=== PATIENT | male | born 1960 | race Caucasian/White ===

== ENCOUNTER 2017-01-30 04:10 | Emergency (ER) | payer MEDICAID ==
--- NOTE | 2017-01-30 06:19 | EDM.PDOC ---
ED HPI GENERAL MEDICAL PROBLEM - General Chief Complaint: Chest Pain Stated Complaint: [facility] Time Seen by Provider: 01/30/17 04:53 Source of Information: Reports: Patient History Limitations: Reports: No Limitations - History of Present Illness INITIAL COMMENTS - FREE TEXT/NARRATIVE: This patient complains of vague pain in the middle of his chest. He's been having it off and on for about a week. The pain again this rapidly and lasts only a split second. It is like a jolt. He describes it " like a pain" not pressure not sharp. He said the pains keep repeating and there repeating more today. He was concerned just because they were repeating more Has a history of coronary artery disease had a CABG in 2013. Patient is a dialysis patient and he goes to dialysis later today. 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 Pain Score (Numeric/FACES): 0 - Related Data Allergies Allergy/AdvReac Type Severity Reaction Status Date / Time Phenothiazines AdvReac Bradycardia Verified 01/30/17 04:24 Home Meds: Home Meds *Renal Caps 1 each PO QPM 03/07/14 [History] Acetaminophen [Tylenol] 650 mg PO ASDIRECTED PRN 03/07/14 [History] Aspirin [Adult Low Dose Aspirin EC] 81 mg PO DAILY 03/07/14 [History] ClonazePAM [KlonoPIN] 0.25 mg PO BID 03/07/14 [History] Clopidogrel [Plavix] 75 mg PO QPM 03/07/14 [History] Insulin Aspart [Novolog Flexpen] 15 units SUBCUT BID 03/07/14 [History] Nitroglycerin [Nitrostat] 0.4 mg SL ASDIRECTED 03/07/14 [History] Omeprazole 20 mg PO BID 03/07/14 [History] Rosuvastatin Calcium [Crestor] 40 mg PO BEDTIME 03/07/14 [History] Sertraline HCl 150 mg PO DAILY 03/07/14 [History] amLODIPine [Norvasc] 2.5 mg PO ACBREAKFASTANDBED 03/14/14 [History] Gabapentin [Gabapentin] 100 mg PO BID 02/09/15 [History] QUEtiapine Fumarate [Seroquel Xr] 200 mg PO BEDTIME 02/09/15 [History] Insulin Degludec [Tresiba Flextouch U-200] 72 units SQ BEDTIME 02/22/16 [History ] Past Medical History HEENT History: Reports: Impaired Vision Cardiovascular History: Reports: Afib, CAD, High Cholesterol, [place], SOB on Exertion, Other (See Below) Other Cardiovascular History: pulmonary edema Respiratory History: Reports: Bronchitis, Recurrent, Pneumonia, Recurrent, Sleep Apnea, SOB, Other (See Below) Other Respiratory History: pulmonary edema Genitourinary History: Reports: Chronic Renal Insuffiency, Dialysis Musculoskeletal History: Reports: Gout Neurological History: Reports: Migraines, Neuropathy, Peripheral Psychiatric History: Reports: Anxiety, Bipolar, Depression, Mood Swings, OCD, Panic Attack Endocrine/Metabolic History: Reports: Diabetes, Type II, IDDM, Other (See Below) Other Endocrine/Metabolic History: thyroid disease Hematologic History: Reports: Anemia, Blood Transfusion(s) Immunologic History: Reports: Immunosuppression Oncologic (Cancer) History: Reports: None Dermatologic History: Reports: Cellulitis - Infectious Disease History Infectious Disease History: Reports: Chicken Pox, Shingles Other Infectious Disease History: unknown - Past Surgical History HEENT Surgical History: Reports: None Cardiovascular Surgical History: Reports: Coronary Artery Stent, Percutaneous Transluminal Angioplasty Respiratory Surgical History: Reports: None GI Surgical History: Reports: Colonoscopy Male Surgical History: Reports: Lithotripsy (ESWL) Musculoskeletal Surgical History: Reports: None Oncologic Surgical History: Reports: None Social & Family History - Tobacco Use Smoking Status *Q: Never Smoker Second Hand Smoke Exposure: No - Caffeine Use Caffeine Use: Reports: Coffee, Soda - Alcohol Use Days Per Week of Alcohol Use: 0 - Recreational Drug Use Recreational Drug Use: No Drug Use in Last 12 Months: No Recreational Drug Type: Reports: Marijuana/Hashish Recreational Drug Use Frequency: Not Used In Over 1 Year ED ROS GENERAL - Review of Systems Review Of Systems: See Below Constitutional: Reports: No Symptoms HEENT: Reports: No Symptoms Respiratory: Reports: No Symptoms Cardiovascular: Reports: Chest Pain Endocrine: Reports: No Symptoms GI/Abdominal: Reports: No Symptoms : Reports: No Symptoms Musculoskeletal: Reports: No Symptoms Skin: Reports: No Symptoms Neurological: Reports: No Symptoms ED EXAM, GENERAL - Physical Exam Exam: See Below Exam Limited By: No Limitations General Appearance: Alert, No Apparent Distress, Obese Eye Exam: Bilateral Eye: Normal Inspection Throat/Mouth: Normal Inspection Neck: Normal Inspection Respiratory/Chest: Lungs Clear, Normal Breath Sounds Cardiovascular: Normal Peripheral Pulses, Regular Rate, Rhythm, No Murmur GI/Abdominal: Soft, Non-Tender Back Exam: Normal Inspection Extremities: Normal Inspection, No Pedal Edema Neurological: Alert, Oriented, CN II-XII Intact, No Motor/Sensory Deficits Psychiatric: Normal Affect Skin Exam: Warm, Dry Course - Vital Signs Last Recorded V/S: Last Vital Signs Temp 36.5 C 01/30/17 04:25 Pulse 89 01/30/17 06:14 Resp 12 01/30/17 06:14 BP 195/109 H 01/30/17 06:14 Pulse Ox 95 01/30/17 06:14 - Orders/Labs/Meds Orders: Active Orders 24 hr Category Date Time Status EKG Documentation Completion [RC] ASDIRECTED Care 01/30/17 04:55 Active Chest 1V Frontal [CR] Urgent Exams 01/30/17 04:54 Taken TROPONIN I [CHEM] Urgent Lab 01/30/17 07:00 Ordered EKG 12 Lead [EK] Urgent Ther 01/30/17 04:54 Ordered Labs: Laboratory Tests 01/30/17 01/30/17 01/30/17 Range/Units 04:54 04:54 06:15 WBC 6.8 (4.5-11.0) K/uL RBC 3.85 L (4.30-5.90) M/uL Hgb 11.7 L (12.0-15.0) g/dL Hct 33.9 L (40.0-54.0) % MCV 88 (80-98) fL MCH 30 (27-31) pg MCHC 35 (32-36) % Plt Count 189 (150-400) K/uL Neut % (Auto) 61 (36-66) % Lymph % (Auto) 26 (24-44) % [place] % (Auto) 7 H (2-6) % Eos % (Auto) 4 (2-4) % Baso % (Auto) 1 (0-1) % Sodium 136 L (140-148) mmol/L Potassium 4.4 (3.6-5.2) mmol/L Chloride 95 L (100-108) mmol/L Carbon Dioxide 28 (21-32) mmol/L Anion Gap 17.4 H (5.0-14.0) mmol/L BUN 63 H (7-18) mg/dL Creatinine 9.5 H* (0.8-1.3) mg/dL Est Cr Clr Drug Dosing 7.74 mL/min Estimated GFR (MDRD) 6 L (>60) Glucose 242 H (74-106) mg/dL Calcium 9.0 (8.5-10.1) mg/dL Total Bilirubin 0.3 (0.2-1.0) mg/dL AST 17 (15-37) U/L ALT 23 (12-78) U/L Alkaline Phosphatase 93 (46-116) U/L Troponin I 0.067 H* 0.068 H* (0.000-0.056) ng/mL Total Protein 7.4 (6.4-8.2) g/dL Albumin 3.7 (3.4-5.0) g/dL Globulin 3.7 H (2.3-3.5) g/dL Albumin/Globulin Ratio 1.0 L (1.2-2.2) - Radiology Interpretation Free Text/Narrative:: Slight blunting of the left costophrenic angle. Mild cardiomegaly. Abnormal left heart border probably post surgical seen previously area sternotomy wires. Overall no acute findings - Re-Assessments/Exams Free Text/Narrative Re-Assessment/Exam: 01/30/17 06:23 EKG shows sinus rhythm at 67 bpm there is some inverted T waves laterally that' s been seen for present persistent Q-wave in the lead 3 seen before 01/30/17 06:27 Creatinine is grossly elevated but note patient has dialysis later today. Troponin is mildly elevated and this is most likely due to the elevated creatinine. Repeat troponin at 0700 Free Text/Narrative Re-Assessment/Exam: 01/30/17 06:47 2 hour troponin is unchanged. Patient will be discharged. Pain is noncardiac Departure - Departure Time of Disposition: 06:47 Disposition: Home, Self-Care 01 Condition: Fair Clinical Impression: Non-cardiac chest pain Forms: ED Department Discharge Additional Instructions: Continue all your usual medications. Be sure you go to dialysis today - My Orders Last 24 Hours: My Active Orders 01/30/17 04:54 Chest 1V Frontal [CR] Urgent EKG 12 Lead [EK] Urgent 01/30/17 04:55 EKG Documentation Completion [RC] ASDIRECTED 01/30/17 07:00 TROPONIN I [CHEM] Urgent - Assessment/Plan Last 24 Hours: My Active Orders 01/30/17 04:54 Chest 1V Frontal [CR] Urgent EKG 12 Lead [EK] Urgent 01/30/17 04:55 EKG Documentation Completion [RC] ASDIRECTED 01/30/17 07:00 TROPONIN I [CHEM] Urgent
[2017-01-30 06:26] VITALS: BP 195/109
--- NOTE | 2017-01-30 09:21 | CR ---
Chest 1V Frontal HISTORY: pain COMPARISON: 03/01/2016 FINDINGS: Portable chest, 0509 hours. There is been interval median sternotomy. Heart size is within normal limits for the AP technique. P ulmonary vasculature is not engorged. A small amount of right pleural fluid is present. This tracks into the major fissure. No acute infiltrate is identified. Bony structures are stable. IMPRESSION: Interval median sternotomy. Small right pleural effusion. No other acute chest abnormali ty is identified.
== END 2017-01-30 07:30 | disposition home or self-care (01) ==
LOC: JP.ED 04:10
DX: R07.89 Other chest pain (principal); I25.2 Old myocardial infarction; I48.91 Unspecified atrial fibrillation; I25.10 Atherosclerotic heart disease of native coronary artery without angina pectoris; E78.00 Pure hypercholesterolemia, unspecified; E11.22 Type 2 diabetes mellitus with diabetic chronic kidney disease; N18.9 Chronic kidney disease, unspecified; F31.9 Bipolar disorder, unspecified; Z95.1 Presence of aortocoronary bypass graft; Z95.5 Presence of coronary angioplasty implant and graft; Z98.890 Other specified postprocedural states; Z79.82 Long term (current) use of aspirin; Z79.4 Long term (current) use of insulin; Z79.899 Other long term (current) drug therapy; Z88.8 Allergy status to other drugs, medicaments and biological substances
CPT/HCPCS: 36415; 71010; 71010-26; 80053; 84484; 85025; 93005; 93010; 99284; 99285-25

== ENCOUNTER 2017-04-20 10:52 | Emergency (ER) | payer MEDICAID ==
[2017-04-20] MEDS ORDERED: Acetaminophen 500 MG Tab PO ONE (11:10)
--- NOTE | 2017-04-20 11:12 | EDM.PDOC ---
ED HPI GENERAL MEDICAL PROBLEM - General Chief Complaint: Fever Stated Complaint: FROM [facility] Time Seen by Provider: 04/20/17 11:00 Source of Information: Reports: Patient, EMS History Limitations: Reports: No Limitations - History of Present Illness INITIAL COMMENTS - FREE TEXT/NARRATIVE: 56-year-old male who felt somewhat unwell last night with a mild headache and generalized malaise was feeling better this morning, went to his dialysis and was 3 hours into his run when he developed shaking chills. He then became diaphoretic and had an emesis so they sent him over to the emergency room by EMS. On arrival he was still having shaking chills, his temperature was 99.9. He had no further emesis. Other than a slight headache he had no cold symptoms, sore throat, cough, shortness of breath, diarrhea, abdominal pain, rashes or erythema of the skin. He has a history of UTIs. He has no new urinary symptoms. Severity: Moderate Associated Symptoms: Reports: Fever/Chills, Headaches, Malaise, Nausea/ Vomiting. 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 below) Other Treatments WEAVER TIRE CORD: At dialysis Back Pain Score (Numeric/FACES): 4 - Related Data Allergies Allergy/AdvReac Type Severity Reaction Status Date / Time Phenothiazines AdvReac Bradycardia Verified 01/30/17 04:24 Home Meds: Home Meds Acetaminophen [Tylenol] 650 mg PO ASDIRECTED PRN 03/07/14 [History] Aspirin [Adult Low Dose Aspirin EC] 81 mg PO DAILY 03/07/14 [History] ClonazePAM [KlonoPIN] 0.5 mg PO BID 03/07/14 [History] Clopidogrel [Plavix] 75 mg PO QPM 03/07/14 [History] Insulin Aspart [Novolog Flexpen] 25 units SUBCUT ACBREAKFAST 03/07/14 [History] Nitroglycerin [Nitrostat] 0.4 mg SL ASDIRECTED 03/07/14 [History] Rosuvastatin Calcium [Crestor] 40 mg PO BEDTIME 03/07/14 [History] Sertraline HCl 150 mg PO DAILY 03/07/14 [History] amLODIPine [Norvasc] 2.5 mg PO ACBREAKFASTANDBED 03/14/14 [History] Gabapentin [Gabapentin] 100 mg PO BID 02/09/15 [History] QUEtiapine Fumarate [Seroquel Xr] 200 mg PO BEDTIME 02/09/15 [History] Calcium Acetate [PhosLo] 2 tab PO DAILY 04/20/17 [History] Insulin Glarg,Human.Rec.Analog [Lantus Solostar] 80 units SUBCUT BEDTIME [History] Nefazodone [Serzone] 150 tab PO DAILY 04/20/17 [History] Pantoprazole Sodium [Pantoprazole Sodium] 40 mg PO DAILY 04/20/17 [History] Past Medical History HEENT History: Reports: Impaired Vision Cardiovascular History: Reports: Afib, CAD, High Cholesterol, [place], SOB on Exertion, Other (See Below) Other Cardiovascular History: pulmonary edema Respiratory History: Reports: Bronchitis, Recurrent, Pneumonia, Recurrent, Sleep Apnea, SOB, Other (See Below) Other Respiratory History: pulmonary edema Genitourinary History: Reports: Chronic Renal Insuffiency, Dialysis Musculoskeletal History: Reports: Gout Neurological History: Reports: Migraines, Neuropathy, Peripheral Psychiatric History: Reports: Anxiety, Bipolar, Depression, Mood Swings, OCD, Panic Attack Endocrine/Metabolic History: Reports: Diabetes, Type II, IDDM, Other (See Below) Other Endocrine/Metabolic History: thyroid disease Hematologic History: Reports: Anemia, Blood Transfusion(s) Immunologic History: Reports: Immunosuppression Oncologic (Cancer) History: Reports: None Dermatologic History: Reports: Cellulitis - Infectious Disease History Infectious Disease History: Reports: Chicken Pox, Shingles Other Infectious Disease History: unknown - Past Surgical History HEENT Surgical History: Reports: None Cardiovascular Surgical History: Reports: Coronary Artery Stent, Percutaneous Transluminal Angioplasty Respiratory Surgical History: Reports: None GI Surgical History: Reports: Colonoscopy Male Surgical History: Reports: Lithotripsy (ESWL) Musculoskeletal Surgical History: Reports: None Oncologic Surgical History: Reports: None Social & Family History - Tobacco Use Smoking Status *Q: Never Smoker Second Hand Smoke Exposure: No - Caffeine Use Caffeine Use: Reports: Coffee, Soda - Alcohol Use Days Per Week of Alcohol Use: 0 - Recreational Drug Use Recreational Drug Use: No Drug Use in Last 12 Months: No Recreational Drug Type: Reports: Marijuana/Hashish Recreational Drug Use Frequency: Not Used In Over 1 Year ED ROS GENERAL - Review of Systems Review Of Systems: See Below Constitutional: Reports: Fever, Chills, Malaise. Denies: Weakness HEENT: Denies: Throat Pain Respiratory: Denies: Shortness of Breath, Cough Cardiovascular: Denies: Chest Pain GI/Abdominal: Reports: Nausea, Vomiting. Denies: Abdominal Pain : Reports: No Symptoms Skin: Reports: Pallor, Diaphoresis Neurological: Reports: Headache. Denies: Confusion, Dizziness Psychiatric: Reports: No Symptoms ED EXAM, GENERAL - Physical Exam Exam: See Below Exam Limited By: No Limitations General Appearance: Alert, No Apparent Distress Eye Exam: Bilateral Eye: Normal Inspection Nose: No Blood Throat/Mouth: Normal Inspection Respiratory/Chest: No Respiratory Distress, Lungs Clear Cardiovascular: Regular Rate, Rhythm, Tachycardia GI/Abdominal: Soft, Non-Tender Extremities: Normal Inspection Neurological: Alert, Oriented Psychiatric: Normal Affect, Normal Mood Skin Exam: Warm, Dry Course - Vital Signs Last Recorded V/S: Last Vital Signs Temp 101.5 F H 04/20/17 12:21 Pulse 112 H 04/20/17 11:57 Resp 17 04/20/17 11:57 BP 103/50 L 04/20/17 11:57 Pulse Ox 97 04/20/17 11:57 - Orders/Labs/Meds Labs: Laboratory Tests 04/20/17 04/20/17 04/20/17 Range/Units 11:19 11:19 12:18 WBC 4.7 (4.5-11.0) K/uL RBC 4.14 L (4.30-5.90) M/uL Hgb 12.0 (12.0-15.0) g/dL Hct 36.8 L (40.0-54.0) % MCV 89 (80-98) fL MCH 29 (27-31) pg MCHC 33 (32-36) % Plt Count 160 (150-400) K/uL Neut % (Auto) 71 H (36-66) % Lymph % (Auto) 10 L (24-44) % [place] % (Auto) 18 H (2-6) % Eos % (Auto) 0 L (2-4) % Baso % (Auto) 0 (0-1) % Sodium 136 L (140-148) mmol/L Potassium 4.0 (3.6-5.2) mmol/L Chloride 92 L (100-108) mmol/L Carbon Dioxide 32 (21-32) mmol/L Anion Gap 16.0 H (5.0-14.0) mmol/L BUN 33 H (7-18) mg/dL Creatinine 7.2 H* (0.8-1.3) mg/dL Est Cr Clr Drug Dosing 10.21 mL/min Estimated GFR (MDRD) 8 L (>60) Glucose 230 H (74-106) mg/dL Calcium 9.7 (8.5-10.1) mg/dL Urine Color Yellow Urine Appearance Clear Urine pH 7.0 (4.5-8.0) Ur Specific [place] 1.005 L (1.008-1.030) Urine Protein 30 H (NEGATIVE) mg/dL Urine Glucose (UA) 1000 H (NEGATIVE) mg/dL Urine Ketones Negative (NEGATIVE) mg/dL Urine Occult Blood Trace (NEGATIVE) Urine Nitrite Negative (NEGAITVE) Urine Bilirubin Negative (NEGATIVE) Urine Urobilinogen Normal (NORMAL) mg/dL Ur Leukocyte Esterase Negative (NEGATIVE) Urine RBC 0-5 (0-5) Urine WBC 0-5 (0-5) Ur Epithelial Cells Many Amorphous Sediment Many Urine Bacteria Not seen Urine Mucus Not seen Meds: Medications Discontinued Medications Generic Name Dose Route Start Last Admin Trade Name Freq PRN Reason Stop Dose Admin Acetaminophen 1,000 mg 04/20/17 11:10 04/20/17 11:19 Tylenol Extra Strength PO 04/20/17 11:11 1,000 mg ONETIME ONE Administration - Re-Assessments/Exams Free Text/Narrative Re-Assessment/Exam: 04/20/17 12:50 CBC and CMP were obtained, as well as a UA. He was given 1000 mg of Tylenol. Fever did spike to 102 but then resolved. Urine returned negative other than glucose. White count was normal. He felt back to baseline prior to discharge. We discussed the possibility of a mild viral syndrome or even transient bacteremia with his dialysis but there does not appear to be anything needing treatment at this time. He has an appointment at the clinic at 1:30 really wants to get to, he was discharged and observed ambulating over to the clinic and he looked fine. Departure - Departure Time of Disposition: 12:48 Disposition: Home, Self-Care 01 Condition: Good Clinical Impression: Fever and chills Headache Qualifiers: Headache type: unspecified Headache chronicity pattern: unspecified pattern Intractability: not intractable Qualified Code(s): R51 - Headache - Discharge Information Instructions: Fever, Adult Referrals: PCP,None [Primary Care Provider] - Forms: ED Department Discharge Care Plan Goals: Continue your regular medications, no antibiotics needed at this time. Return any time if fevers recurs or you develop specific symptoms such as sore throat, cough, abdominal pain or other concerns.
[2017-04-20 11:59] VITALS: BP 103/50
== END 2017-04-20 12:45 | disposition home or self-care (01) ==
LOC: JP.ED 10:52
DX: R51 Headache (principal); R50.9 Fever, unspecified; E11.22 Type 2 diabetes mellitus with diabetic chronic kidney disease; N18.9 Chronic kidney disease, unspecified; Z79.82 Long term (current) use of aspirin; Z79.4 Long term (current) use of insulin; Z79.899 Other long term (current) drug therapy
CPT/HCPCS: 36415; 80048; 81001; 85025; 99284; A9270; 99282

== ENCOUNTER 2017-10-23 17:36 | Emergency (ER) | payer MEDICAID ==
[2017-10-23] MEDS ORDERED: Sodium Chloride 0.9% 1,000 ML IV SCH (18:15)
--- NOTE | 2017-10-23 18:20 | EDM.PDOC ---
ED HPI GENERAL MEDICAL PROBLEM - General Chief Complaint: Respiratory Problem Stated Complaint: [facility] Time Seen by Provider: 10/23/17 18:00 Source of Information: Reports: Patient, EMS History Limitations: Reports: No Limitations - History of Present Illness INITIAL COMMENTS - FREE TEXT/NARRATIVE: 49-year-old male who just finished his dialysis run today was brought in by EMS with shortness of breath. He has a history of anxiety causing shortness of breath, however he has had 2-3 days of abdominal flulike symptoms with persistent nausea, decreased appetite but no vomiting. Some mild diarrhea. He's been running a fever for the last 2-3 days. Although he denies any pain, EMS reported he was having intermittent chest discomfort. He had a mild headache last night. No significant cough. Duration: Day(s): (Symptoms for about 3-4 days) Severity: Moderate Associated Symptoms: Reports: Chest Pain, Fever/Chills, Headaches, Malaise, Nausea/Vomiting, Shortness of Breath. Denies: Cough - Related Data Allergies Allergy/AdvReac Type Severity Reaction Status Date / Time Phenothiazines AdvReac Bradycardia Verified 10/23/17 17:54 Home Meds: Home Meds Acetaminophen [Tylenol] 650 mg PO ASDIRECTED PRN 03/07/14 [History] Aspirin [Adult Low Dose Aspirin EC] 81 mg PO DAILY 03/07/14 [History] ClonazePAM [KlonoPIN] 0.5 mg PO BID 03/07/14 [History] Clopidogrel [Plavix] 75 mg PO QPM 03/07/14 [History] Insulin Aspart [Novolog Flexpen] 25 units SUBCUT ACBREAKFAST 03/07/14 [History] Nitroglycerin [Nitrostat] 0.4 mg SL ASDIRECTED 03/07/14 [History] Rosuvastatin Calcium [Crestor] 40 mg PO BEDTIME 03/07/14 [History] Sertraline HCl 150 mg PO DAILY 03/07/14 [History] amLODIPine [Norvasc] 2.5 mg PO ACBREAKFASTANDBED 03/14/14 [History] Gabapentin 100 mg PO BID 02/09/15 [History] QUEtiapine Fumarate [Seroquel Xr] 200 mg PO BEDTIME 02/09/15 [History] Calcium Acetate [PhosLo] 2 tab PO DAILY 04/20/17 [History] Insulin Glarg,Human.Rec.Analog [Lantus Solostar] 80 units SUBCUT BEDTIME [History] Nefazodone [Serzone] 150 tab PO DAILY 04/20/17 [History] Pantoprazole Sodium 40 mg PO DAILY 04/20/17 [History] Past Medical History HEENT History: Reports: Impaired Vision Cardiovascular History: Reports: Afib, CAD, High Cholesterol, [place], SOB on Exertion, Other (See Below) Other Cardiovascular History: pulmonary edema Respiratory History: Reports: Bronchitis, Recurrent, Pneumonia, Recurrent, Sleep Apnea, SOB, Other (See Below) Other Respiratory History: pulmonary edema Genitourinary History: Reports: Chronic Renal Insuffiency, Dialysis Musculoskeletal History: Reports: Gout Neurological History: Reports: Migraines, Neuropathy, Peripheral Psychiatric History: Reports: Anxiety, Bipolar, Depression, Mood Swings, OCD, Panic Attack Endocrine/Metabolic History: Reports: Diabetes, Type II, IDDM, Other (See Below) Other Endocrine/Metabolic History: thyroid disease Hematologic History: Reports: Anemia, Blood Transfusion(s) Immunologic History: Reports: Immunosuppression, Other (See Below) Other Immunologic History: dialysis patient Oncologic (Cancer) History: Reports: None Dermatologic History: Reports: Cellulitis - Infectious Disease History Infectious Disease History: Reports: Chicken Pox, Shingles Other Infectious Disease History: unknown - Past Surgical History Cardiovascular Surgical History: Reports: Coronary Artery Bypass, Coronary Artery Stent, Percutaneous Transluminal Angioplasty GI Surgical History: Reports: Colonoscopy Male Surgical History: Reports: Lithotripsy (ESWL) Social & Family History - Tobacco Use Smoking Status *Q: Never Smoker Second Hand Smoke Exposure: No - Caffeine Use Caffeine Use: Reports: Coffee, Soda - Alcohol Use Days Per Week of Alcohol Use: 0 - Recreational Drug Use Recreational Drug Use: No Drug Use in Last 12 Months: No Recreational Drug Type: Reports: Marijuana/Hashish Recreational Drug Use Frequency: Not Used In Over 1 Year ED ROS GENERAL - Review of Systems Review Of Systems: See Below Constitutional: Reports: Fever, Chills, Malaise, Decreased Appetite HEENT: Reports: No Symptoms Respiratory: Reports: Shortness of Breath. Denies: Cough, Sputum Cardiovascular: Reports: Chest Pain. Denies: Palpitations GI/Abdominal: Reports: Diarrhea, Nausea. Denies: Abdominal Pain, Vomiting Skin: Reports: Diaphoresis Neurological: Reports: No Symptoms Psychiatric: Reports: Anxiety ED EXAM, GENERAL - Physical Exam Exam: See Below Exam Limited By: No Limitations General Appearance: Alert, No Apparent Distress, Anxious Eye Exam: Bilateral Eye: Normal Inspection Head: Atraumatic Respiratory/Chest: No Respiratory Distress, Lungs Clear, Chest Non-Tender Cardiovascular: Regular Rate, Rhythm. No: Tachycardia GI/Abdominal: Normal Bowel Sounds, Tender (Patient reacts with fairly significant tenderness in the right upper quadrant) Extremities: Normal Inspection. No: Pedal Edema Neurological: Alert, Oriented Psychiatric: Anxious Skin Exam: Warm, Diaphoretic Course - Vital Signs Last Recorded V/S: Last Vital Signs Temp 99.5 F 10/23/17 19:31 Pulse 99 10/23/17 19:31 Resp 18 10/23/17 19:31 BP 114/58 L 10/23/17 19:31 Pulse Ox 94 L 10/23/17 19:31 - Orders/Labs/Meds Orders: Active Orders 24 hr Category Date Time Status Abdomen Pelvis wo Cont [CT] Stat Exams 10/23/17 18:51 Taken Chest 1V Frontal [CR] Stat Exams 10/23/17 18:12 Taken CULTURE BLOOD [BC] Urgent Lab 10/23/17 19:30 Ordered CULTURE BLOOD [BC] Urgent Lab 10/23/17 19:32 Ordered Blood Culture x2 Reflex Set [OM.PC] Urgent Oth 10/23/17 19:28 Ordered Labs: Laboratory Tests 10/23/17 10/23/17 Range/Units 18:12 18:12 WBC 6.2 (4.5-11.0) K/uL RBC 3.57 L (4.30-5.90) M/uL Hgb 10.5 L (12.0-15.0) g/dL Hct 31.2 L (40.0-54.0) % MCV 87 (80-98) fL MCH 29 (27-31) pg MCHC 34 (32-36) % Plt Count 110 L (150-400) K/uL Neut % (Auto) 72 H (36-66) % Lymph % (Auto) 10 L (24-44) % [place] % (Auto) 18 H (2-6) % Eos % (Auto) 0 L (2-4) % Baso % (Auto) 0 (0-1) % Sodium 133 L (140-148) mmol/L Potassium 4.2 (3.6-5.2) mmol/L Chloride 93 L (100-108) mmol/L Carbon Dioxide 26 (21-32) mmol/L Anion Gap 18.2 H (5.0-14.0) mmol/L BUN 35 H (7-18) mg/dL Creatinine 7.9 H* (0.8-1.3) mg/dL Est Cr Clr Drug Dosing 9.20 mL/min Estimated GFR (MDRD) 7 L (>60) Glucose 228 H (74-106) mg/dL Calcium 9.1 (8.5-10.1) mg/dL Total Bilirubin 0.7 D (0.2-1.0) mg/dL AST 30 D (15-37) U/L ALT 44 D (12-78) U/L Alkaline Phosphatase 80 (46-116) U/L Total Protein 6.7 (6.4-8.2) g/dL Albumin 3.0 L (3.4-5.0) g/dL Globulin 3.7 H (2.3-3.5) g/dL Albumin/Globulin Ratio 0.8 L (1.2-2.2) Amylase 33 (25-115) U/L Lipase 166 (73-393) U/L Meds: Medications Discontinued Medications Generic Name Dose Route Start Last Admin Trade Name Freq PRN Reason Stop Dose Admin Sodium Chloride 1,000 mls @ 500 mls/hr 10/23/17 18:15 10/23/17 18:23 Normal Saline IV 500 mls/hr ASDIRECTED EDGARDO Administration Ceftriaxone Sodium 1 gm/ 50 mls @ 100 mls/hr 10/23/17 20:01 10/23/17 20:13 Sodium Chloride IV 10/23/17 20:30 100 mls/hr ONETIME ONE Administration Quetiapine Fumarate 200 mg 10/23/17 18:56 10/23/17 19:04 Seroquel PO 10/23/17 18:57 200 mg ONETIME ONE Administration - Re-Assessments/Exams Free Text/Narrative Re-Assessment/Exam: 10/23/17 18:19 EMS EKG showed no ST elevation, sinus rhythm was present. A 1 view chest x-ray will be obtained, CBC, CMP, amylase and lipase and fluid started with normal saline at 500 mL an hour. His vitals other than his temperature of 102.5 were all normal at this time. I'm concerned he may be having some smoldering cholecystitis issues. 10/23/17 19:30 Portable chest x-ray shows no definite infiltrate. White count is normal. Creatinine is still 7.9 despite just finishing dialysis, and he continued to run a fever of 101 102.CT the abdomen and pelvis without contrast was obtained which showed atelectasis or possible infiltrate in the right lower lobe. I have no previous to compare. Blood cultures were then obtained. His liver function studies amylase and lipase were all normal. 10/23/17 20:33 CT revealed no intra-abdominal concerns, there was a pleural effusion in the right base of the lung. Small pneumonia in this area is possible. Patient was given 1 g of Rocephin IV, did not want transfer and wanted to be treated at home so was given Ceftin 250 mg twice daily for the next 7 days. He is to continue his dialysis schedule as usual and return if worsening despite treatment. Departure - Departure Time of Disposition: 21:51 Disposition: Home, Self-Care 01 Condition: Fair Clinical Impression: Fever and chills, Pleural effusion, right Pneumonia Qualifiers: Pneumonia type: due to unspecified organism Laterality: right Lung location: lower lobe of lung Qualified Code(s): J18.1 - Lobar pneumonia, unspecified organism - Discharge Information Instructions: Community-Acquired Pneumonia, Adult, [id number] Referrals: PCP,None [Primary Care Provider] - Forms: ED Department Discharge Care Plan Goals: Continue your current medications and start antibiotic twice daily for 7 days as prescribed on Thursday. Recheck at any time if worsening or concerns otherwise follow your regular dialysis schedule and recheck on Thursday or Thursday if not improving satisfactorily. - My Orders Last 24 Hours: My Active Orders 10/23/17 18:12 Chest 1V Frontal [CR] Stat 10/23/17 18:51 Abdomen Pelvis wo Cont [CT] Stat 10/23/17 19:28 Blood Culture x2 Reflex Set [OM.PC] Urgent 10/23/17 19:30 CULTURE BLOOD [BC] Urgent 10/23/17 19:32 CULTURE BLOOD [BC] Urgent - Assessment/Plan Last 24 Hours: My Active Orders 10/23/17 18:12 Chest 1V Frontal [CR] Stat 10/23/17 18:51 Abdomen Pelvis wo Cont [CT] Stat 10/23/17 19:28 Blood Culture x2 Reflex Set [OM.PC] Urgent 10/23/17 19:30 CULTURE BLOOD [BC] Urgent 10/23/17 19:32 CULTURE BLOOD [BC] Urgent
[2017-10-23] MEDS ORDERED: QUEtiapine 25 MG Tab PO ONE (18:56)
[2017-10-23 19:33] VITALS: BP 114/58
[2017-10-23] MEDS ORDERED: cefTRIAXone 1 GM in Sodium Chloride 0.9% 50 ML IV ONE (20:01)
--- NOTE | 2017-10-26 08:47 | CR ---
Chest 1V Frontal INDICATION: short of breath, fever COMPARISON: 06/02/2017 FINDINGS: AP portable chest. Heart size normal. Sternotomy wires. Minimal scarring in the lingula unchanged. No new infiltrates or pleural effusions. No signs of pulmonary edema. Slight elevation right hemidiaphragm unchanged.
== END 2017-10-23 20:45 | disposition home or self-care (01) ==
LOC: JP.ED 17:36
DX: J18.9 Pneumonia, unspecified organism (principal); J90 Pleural effusion, not elsewhere classified; E11.9 Type 2 diabetes mellitus without complications; I48.91 Unspecified atrial fibrillation; E78.00 Pure hypercholesterolemia, unspecified; I25.2 Old myocardial infarction; Z79.4 Long term (current) use of insulin; Z79.899 Other long term (current) drug therapy; Z79.82 Long term (current) use of aspirin; Z88.8 Allergy status to other drugs, medicaments and biological substances
CPT/HCPCS: 36415; 71045; 74176; 80053; 82150; 83690; 85025; 87040; 87077; 87186; 96361; 96365; 99284; A9270; J0696; J7040; J7050

== ENCOUNTER 2017-11-11 07:11 | Emergency (ER) | payer MEDICAID ==
--- NOTE | 2017-11-11 07:58 | EDM.PDOC ---
ED HPI GENERAL MEDICAL PROBLEM - General Chief Complaint: Cardiovascular Problem Stated Complaint: FROM CLINIC Time Seen by Provider: 11/11/17 07:52 Source of Information: Reports: Patient, RN Notes Reviewed History Limitations: Reports: No Limitations - History of Present Illness INITIAL COMMENTS - FREE TEXT/NARRATIVE: 57-year-old gentleman presents to the emergency department today for evaluation , he has a known history of coronary artery disease as well as end-stage renal disease on dialysis. He presented to the dialysis clinic today for treatment admitted that he was having chest discomfort was sent to the emergency department for further evaluation. He states that he has been having chest discomfort over the last several days he does admit that when his anxiety goes up he develops chest discomfort he is pain-free at this time. No nausea vomiting shortness of breath no diaphoresis - Related Data Allergies Allergy/AdvReac Type Severity Reaction Status Date / Time Phenothiazines AdvReac Bradycardia Verified 11/11/17 07:27 Home Meds: Home Meds Acetaminophen [Tylenol] 650 mg PO ASDIRECTED PRN 03/07/14 [History] Aspirin [Adult Low Dose Aspirin EC] 81 mg PO DAILY 03/07/14 [History] ClonazePAM [KlonoPIN] 0.5 mg PO BID 03/07/14 [History] Clopidogrel [Plavix] 75 mg PO QPM 03/07/14 [History] Insulin Aspart [Novolog Flexpen] 25 units SUBCUT ACBREAKFAST 03/07/14 [History] Nitroglycerin [Nitrostat] 0.4 mg SL ASDIRECTED 03/07/14 [History] Rosuvastatin Calcium [Crestor] 40 mg PO BEDTIME 03/07/14 [History] Sertraline HCl 150 mg PO DAILY 03/07/14 [History] amLODIPine [Norvasc] 2.5 mg PO ACBREAKFASTANDBED 03/14/14 [History] Gabapentin 100 mg PO BID 02/09/15 [History] QUEtiapine Fumarate [Seroquel Xr] 200 mg PO BEDTIME 02/09/15 [History] Calcium Acetate [PhosLo] 2 tab PO DAILY 04/20/17 [History] Insulin Glarg,Human.Rec.Analog [Lantus Solostar] 80 units SUBCUT BEDTIME [History] Nefazodone [Serzone] 150 tab PO DAILY 04/20/17 [History] Pantoprazole Sodium 40 mg PO DAILY 04/20/17 [History] Past Medical History HEENT History: Reports: Impaired Vision Cardiovascular History: Reports: Afib, CAD, High Cholesterol, [place], SOB on Exertion, Other (See Below) Other Cardiovascular History: pulmonary edema Respiratory History: Reports: Bronchitis, Recurrent, Pneumonia, Recurrent, Sleep Apnea, SOB, Other (See Below) Other Respiratory History: pulmonary edema Genitourinary History: Reports: Chronic Renal Insuffiency, Dialysis Musculoskeletal History: Reports: Gout Neurological History: Reports: Migraines, Neuropathy, Peripheral Psychiatric History: Reports: Anxiety, Bipolar, Depression, Mood Swings, OCD, Panic Attack Endocrine/Metabolic History: Reports: Diabetes, Type II, IDDM, Other (See Below) Other Endocrine/Metabolic History: thyroid disease Hematologic History: Reports: Anemia, Blood Transfusion(s) Immunologic History: Reports: Immunosuppression, Other (See Below) Other Immunologic History: dialysis patient Dermatologic History: Reports: Cellulitis - Infectious Disease History Infectious Disease History: Reports: Chicken Pox, Pertussis (Whooping Cough) Other Infectious Disease History: unknown - Past Surgical History Cardiovascular Surgical History: Reports: Coronary Artery Bypass, Coronary Artery Stent, Percutaneous Transluminal Angioplasty Other Cardiovascular Surgeries/Procedures: CABG x3 2014 GI Surgical History: Reports: Colonoscopy Male Surgical History: Reports: Lithotripsy (ESWL) Social & Family History - Tobacco Use Smoking Status *Q: Never Smoker - Caffeine Use Caffeine Use: Reports: Coffee, Soda - Recreational Drug Use Recreational Drug Use: No ED ROS GENERAL - Review of Systems Review Of Systems: See Below Constitutional: Reports: No Symptoms HEENT: Reports: No Symptoms Respiratory: Reports: No Symptoms Cardiovascular: Reports: Chest Pain GI/Abdominal: Reports: No Symptoms : Reports: No Symptoms Musculoskeletal: Reports: No Symptoms Skin: Reports: No Symptoms Neurological: Reports: No Symptoms ED EXAM, GENERAL - Physical Exam Exam: See Below Exam Limited By: No Limitations General Appearance: Alert, WD/WN, No Apparent Distress Head: Atraumatic, Normocephalic Neck: Normal Inspection, Supple, Non-Tender, Full Range of Motion Respiratory/Chest: No Respiratory Distress, Lungs Clear, Normal Breath Sounds, No Accessory Muscle Use, Chest Non-Tender Cardiovascular: Regular Rate, Rhythm, No Murmur GI/Abdominal: Soft, Hernia (Umbilical) Course - Vital Signs Last Recorded V/S: Last Vital Signs Temp 95.8 F 11/11/17 07:30 Pulse 89 11/11/17 08:47 Resp 15 11/11/17 08:47 BP 177/74 H 11/11/17 08:47 Pulse Ox 94 L 11/11/17 08:47 - Orders/Labs/Meds Orders: Active Orders 24 hr Category Date Time Status Cardiac Monitoring [RC] .As Directed Care 11/11/17 07:53 Active EKG Documentation Completion [RC] ASDIRECTED Care 11/11/17 07:54 Active Chest 2V [CR] Stat Exams 11/11/17 07:54 Taken EKG 12 Lead [EK] Stat Ther 11/11/17 07:54 Ordered Labs: Laboratory Tests 11/11/17 11/11/17 Range/Units 08:07 08:07 WBC 5.9 (4.5-11.0) K/uL RBC 2.85 L (4.30-5.90) M/uL Hgb 8.1 L D (12.0-15.0) g/dL Hct 25.9 L (40.0-54.0) % MCV 91 (80-98) fL MCH 28 (27-31) pg MCHC 31 L (32-36) % Plt Count 238 (150-400) K/uL Neut % (Auto) 68 H (36-66) % Lymph % (Auto) 19 L (24-44) % [place] % (Auto) 9 H (2-6) % Eos % (Auto) 4 (2-4) % Baso % (Auto) 1 (0-1) % Sodium 140 (140-148) mmol/L Potassium 4.2 (3.6-5.2) mmol/L Chloride 100 (100-108) mmol/L Carbon Dioxide 27 (21-32) mmol/L Anion Gap 13.0 (5.0-14.0) mmol/L BUN 51 H (7-18) mg/dL Creatinine 8.4 H* (0.8-1.3) mg/dL Est Cr Clr Drug Dosing 8.65 mL/min Estimated GFR (MDRD) 7 L (>60) Glucose 207 H (74-106) mg/dL Calcium 8.2 L (8.5-10.1) mg/dL Total Bilirubin 0.3 D (0.2-1.0) mg/dL AST 13 L (15-37) U/L ALT 23 (12-78) U/L Alkaline Phosphatase 79 (46-116) U/L CK-MB (CK-2) 1.5 (0-3.6) mg/mL Troponin I 0.036 (0.000-0.056) ng/mL Total Protein 6.3 L (6.4-8.2) g/dL Albumin 2.6 L (3.4-5.0) g/dL Globulin 3.7 H (2.3-3.5) g/dL Albumin/Globulin Ratio 0.7 L (1.2-2.2) Departure - Departure Time of Disposition: 08:57 Disposition: Home, Self-Care 01 Condition: Fair Clinical Impression: Atypical chest pain Referrals: Raz Francis MD [Primary Care Provider] - Forms: ED Department Discharge Additional Instructions: Please report to dialysis today, recommend following up with your primary care provider to review your anxiety medications, call return to the emergency department with worsening of symptoms - My Orders Last 24 Hours: My Active Orders 11/11/17 07:53 Cardiac Monitoring [RC] .As Directed 11/11/17 07:54 EKG Documentation Completion [RC] ASDIRECTED Chest 2V [CR] Stat EKG 12 Lead [EK] Stat - Assessment/Plan Last 24 Hours: My Active Orders 11/11/17 07:53 Cardiac Monitoring [RC] .As Directed 11/11/17 07:54 EKG Documentation Completion [RC] ASDIRECTED Chest 2V [CR] Stat EKG 12 Lead [EK] Stat Plan: Assessment Acuity = acute Site and laterality = atypical chest pain complicated patient with known history of coronary artery disease as well as end-stage renal disease on dialysis and an anxiety component Etiology = probably related to stress and anxiety Manifestations = none Location of injury = Home Lab values = hemoglobin low at 8.1 consistent normochromic anemia, creatinine elevated 8.4 consistent with end-stage renal disease stage V the, troponin is negative, CK-MB negative, chest x-ray shows,I did review films myself I cannot appreciate any acute process, the official read from radiology is pending EKG demonstrates a sinus rhythm with T-wave inversions in 1 and aVL, Q waves in lead 3 EKG is very similar to the one in January 2017 Plan Recommend follow-up with primary care review the medication of clonazepam that he takes for is anxiety, recommend continuing with dialysis treatment today] This note was dictated using [employer] voice recognition software please call with any questions on syntax or grammar.
[2017-11-11 08:48] VITALS: BP 177/74
--- NOTE | 2017-11-11 09:34 | CR ---
Chest 2V INDICATION: Chest Pain FINDINGS: Comparison 10/23/2017. Sternotomy. Small right pleural effusion that is similar to prior exam s. Infiltrate or atelectasis in the right lung base has minimally increased. Slight fibrosis or atele ctasis left lung base.
== END 2017-11-11 09:14 | disposition home or self-care (01) ==
LOC: JP.ED 07:11
DX: R07.89 Other chest pain (principal); E11.22 Type 2 diabetes mellitus with diabetic chronic kidney disease; N18.6 End stage renal disease; I25.2 Old myocardial infarction; E11.40 Type 2 diabetes mellitus with diabetic neuropathy, unspecified; Z88.8 Allergy status to other drugs, medicaments and biological substances; Z79.82 Long term (current) use of aspirin; Z79.899 Other long term (current) drug therapy
CPT/HCPCS: 36415; 71046; 71046-26; 80053; 82553; 84484; 85025; 93005; 99284; 99284-25

== ENCOUNTER 2017-12-01 18:01 | Emergency (ER) | payer MEDICAID ==
--- NOTE | 2017-12-01 18:45 | EDM.PDOC ---
ED HPI GENERAL MEDICAL PROBLEM - General Chief Complaint: Respiratory Problem Stated Complaint: CAME FROM CLINIC, MEDICAL Time Seen by Provider: 12/01/17 18:25 Source of Information: Reports: Patient, Old Records, RN History Limitations: Reports: No Limitations - History of Present Illness INITIAL COMMENTS - FREE TEXT/NARRATIVE: 57 yo dialysis male patient presents with SOB and hypoxia that began since Thursday. At dialysis last on Thursday no problems were noted. His weight has not been up appreciably. He denies fever. Does have some sputum coming up that is white usually, occasionally yellow. He has no hx of lung dz or smoking. Has been on dialysis for about 4 yrs. Has DM, CAD with a hx of both stent placement and CABG. He reports some pleuritic pain in his back for nearly a months duration. No calf pain, LE edema or pHx of clots. He presented to the clinic today after his home health nurse noted low oximetry levels and the clinic in turn referred him to the ER. He feels more lethargic and tired than usual. Is really only mildly dyspneic. Sats were in the mid 80's before oxygen per [place] was initiated. Onset: Unknown/Unsure Onset Date: 11/30/17 Duration: Hour(s):, Constant Location: Reports: Chest Quality: Reports: Sharp (in the back with breathing for about a month. No other pain reported. ) Severity: Mild Improves with: Reports: None Worsens with: Reports: Other (deep breathing) Context: Reports: Other (diabetic on dialysis) Associated Symptoms: Reports: Cough (Occasional), Shortness of Breath. Denies: Diaphoresis, Fever/Chills Treatments WELLNESS GUIDE: Reports: Oxygen - Related Data Allergies Allergy/AdvReac Type Severity Reaction Status Date / Time Phenothiazines AdvReac Bradycardia Verified 12/01/17 18:15 Home Meds: Home Meds Acetaminophen [Tylenol] 650 mg PO ASDIRECTED PRN 03/07/14 [History] Aspirin [Adult Low Dose Aspirin EC] 81 mg PO DAILY 03/07/14 [History] ClonazePAM [KlonoPIN] 0.5 mg PO BID 03/07/14 [History] Clopidogrel [Plavix] 75 mg PO QPM 03/07/14 [History] Insulin Aspart [Novolog Flexpen] 25 units SUBCUT ACBREAKFAST 03/07/14 [History] Nitroglycerin [Nitrostat] 0.4 mg SL ASDIRECTED 03/07/14 [History] Rosuvastatin Calcium [Crestor] 40 mg PO BEDTIME 03/07/14 [History] Sertraline HCl 150 mg PO DAILY 03/07/14 [History] amLODIPine [Norvasc] 2.5 mg PO ACBREAKFASTANDBED 03/14/14 [History] Gabapentin 100 mg PO BID 02/09/15 [History] QUEtiapine Fumarate [Seroquel Xr] 200 mg PO BEDTIME 02/09/15 [History] Calcium Acetate [PhosLo] 2 tab PO DAILY 04/20/17 [History] Insulin Glarg,Human.Rec.Analog [Lantus Solostar] 80 units SUBCUT BEDTIME [History] Nefazodone [Serzone] 150 tab PO DAILY 04/20/17 [History] Pantoprazole Sodium 40 mg PO DAILY 04/20/17 [History] Past Medical History HEENT History: Reports: Impaired Vision Cardiovascular History: Reports: Afib, CAD, High Cholesterol, [place], SOB on Exertion, Other (See Below) Other Cardiovascular History: pulmonary edema Respiratory History: Reports: Bronchitis, Recurrent, Pneumonia, Recurrent, Sleep Apnea, SOB, Other (See Below) Other Respiratory History: pulmonary edema Genitourinary History: Reports: Chronic Renal Insuffiency, Dialysis Musculoskeletal History: Reports: Gout Neurological History: Reports: Migraines, Neuropathy, Peripheral Psychiatric History: Reports: Anxiety, Bipolar, Depression, Mood Swings, OCD, Panic Attack Endocrine/Metabolic History: Reports: Diabetes, Type II, IDDM, Other (See Below) Other Endocrine/Metabolic History: thyroid disease Hematologic History: Reports: Anemia, Blood Transfusion(s) Immunologic History: Reports: Immunosuppression, Other (See Below) Other Immunologic History: dialysis patient Oncologic (Cancer) History: Reports: None Dermatologic History: Reports: Cellulitis - Infectious Disease History Infectious Disease History: Reports: Chicken Pox, Pertussis (Whooping Cough) Other Infectious Disease History: unknown - Past Surgical History Cardiovascular Surgical History: Reports: Coronary Artery Bypass, Coronary Artery Stent, Percutaneous Transluminal Angioplasty Other Cardiovascular Surgeries/Procedures: CABG x3 2014 GI Surgical History: Reports: Colonoscopy Male Surgical History: Reports: Lithotripsy (ESWL) Social & Family History - Tobacco Use Smoking Status *Q: Never Smoker - Caffeine Use Caffeine Use: Reports: None - Recreational Drug Use Recreational Drug Use: No ED ROS GENERAL - Review of Systems Review Of Systems: See Below Constitutional: Reports: Fatigue HEENT: Reports: No Symptoms Respiratory: Reports: Shortness of Breath, Cough (occasional) Cardiovascular: Reports: No Symptoms GI/Abdominal: Reports: No Symptoms : Reports: No Symptoms Musculoskeletal: Reports: No Symptoms Skin: Reports: No Symptoms Neurological: Reports: No Symptoms ED EXAM, GENERAL - Physical Exam Exam: See Below Exam Limited By: No Limitations General Appearance: Alert, WD/WN, No Apparent Distress Eye Exam: Bilateral Eye: Normal Inspection Ears: Normal External Exam, Normal Canal, Hearing Grossly Normal Ear Exam: Bilateral Ear: Auricle Normal, Canal Normal Nose: Normal Inspection, Normal Mucosa, No Blood Throat/Mouth: Normal Inspection, Normal Lips, Normal Oropharynx, Normal Voice, No Airway Compromise Head: Atraumatic, Normocephalic Neck: Normal Inspection, Supple, Non-Tender Respiratory/Chest: No Respiratory Distress, Lungs Clear, No Accessory Muscle Use , Rhonchi (few at R base) Cardiovascular: Regular Rate, Rhythm, No Edema GI/Abdominal: Normal Bowel Sounds, Soft, Non-Tender, No Distention Back Exam: Normal Inspection. No: CVA Tenderness (R), CVA Tenderness (L) Extremities: Normal Inspection, Normal Range of Motion, Non-Tender, No Pedal Edema Neurological: Alert, Oriented, CN II-XII Intact, Normal Cognition, No Motor/ Sensory Deficits Psychiatric: Normal Affect, Normal Mood Skin Exam: Warm, Dry, Intact, Normal Color, No Rash Lymphatic: No Adenopathy Course - Vital Signs Text/Narrative:: Dr. Williamson accepted @ Last Recorded V/S: Last Vital Signs Temp 37.1 C 12/01/17 18:14 Pulse 92 12/01/17 20:44 Resp 16 12/01/17 18:14 BP 148/66 H 12/01/17 20:44 Pulse Ox 92 L 12/01/17 20:44 - Orders/Labs/Meds Orders: Active Orders 24 hr Category Date Time Status Ang Chest [CT] Stat Exams 12/01/17 19:32 Taken Chest 2V [CR] Stat Exams 12/01/17 18:36 Taken CULTURE BLOOD [BC] Stat Lab 12/01/17 20:55 Received CULTURE BLOOD [BC] Stat Lab 12/01/17 21:00 Received Iopamidol [Isovue-370 (76%)] Med 12/01/17 20:00 Active 100 ml IV . DIRECTED Sodium Chloride 0.9% [Normal Saline] 100 ml Med 12/01/17 20:00 Active IV ASDIRECTED Sodium Chloride 0.9% [Saline Flush] Med 12/01/17 19:48 Active 10 ml FLUSH ASDIRECTED PRN Medication Orders Sodium Chloride (Normal Saline) 100 mls @ 3 mls/sec IV ASDIRECTED EDGARDO Last Admin: 12/01/17 20:08 Dose: 3 mls/sec Iopamidol (Isovue-370 (76%)) 100 ml IV . DIRECTED EDGARDO Last Admin: 12/01/17 20:08 Dose: 100 ml Sodium Chloride (Saline Flush) 10 ml FLUSH ASDIRECTED PRN PRN Reason: Keep Vein Open Last Admin: 12/01/17 20:08 Dose: 10 ml Labs: Laboratory Tests 12/01/17 12/01/17 12/01/17 Range/Units 18:53 18:53 18:53 D-Dimer, Quantitative 912 H (0.0-400.0) ng/mL Sodium 138 L (140-148) mmol/L Potassium 4.3 (3.6-5.2) mmol/L Chloride 95 L (100-108) mmol/L Carbon Dioxide 33 H (21-32) mmol/L Anion Gap 14.3 H (5.0-14.0) mmol/L BUN 56 H (7-18) mg/dL Creatinine 8.7 H* (0.8-1.3) mg/dL Est Cr Clr Drug Dosing 8.35 mL/min Estimated GFR (MDRD) 6 L (>60) Glucose 169 H (74-106) mg/dL Calcium 8.8 (8.5-10.1) mg/dL Troponin I 0.044 (0.000-0.056) ng/mL NT-Pro-B Natriuret Pep 60291 H (5-125) pg/mL Meds: Medications Generic Name Dose Route Start Last Admin Trade Name Freq PRN Reason Stop Dose Admin Sodium Chloride 100 mls @ 3 mls/sec 12/01/17 20:00 12/01/17 20:08 Normal Saline IV 3 mls/sec ASDIRECTED EDGARDO Administration Iopamidol 100 ml 12/01/17 20:00 12/01/17 20:08 Isovue-370 (76%) IV 100 ml . DIRECTED EDGARDO Administration Sodium Chloride 10 ml 12/01/17 19:48 12/01/17 20:08 Saline Flush FLUSH 10 ml ASDIRECTED PRN Administration Keep Vein Open Discontinued Medications Generic Name Dose Route Start Last Admin Trade Name Freq PRN Reason Stop Dose Admin Azithromycin 500 mg 12/01/17 20:56 12/01/17 21:14 Zithromax PO 12/01/17 20:57 500 mg ONETIME ONE Administration Ceftriaxone Sodium 1 gm/ 50 mls @ 100 mls/hr 12/01/17 20:55 12/01/17 21:14 Sodium Chloride IV 12/01/17 21:24 100 mls/hr ONETIME ONE Administration - Radiology Interpretation Free Text/Narrative:: CT PE study-no PE, pulmonary edema, multifocal RLL consolidation. ? pneumonia. CT Results Date: 12/01/17 CT Results Time: 20:40 Departure - Departure Time of Disposition: 21:45 Disposition: DC/Tfer to Acute Hospital 02 Condition: Fair Clinical Impression: Hypoxia RLL pneumonia Qualifiers: Pneumonia type: due to unspecified organism Qualified Code(s): J18.1 - Lobar pneumonia, unspecified organism Fluid overload Qualifiers: Hypervolemia type: other Qualified Code(s): E87.79 - Other fluid overload - Discharge Information Referrals: Raz Francis MD [Primary Care Provider] - Forms: ED Department Discharge - My Orders Last 24 Hours: My Active Orders 12/01/17 18:36 Chest 2V [CR] Stat 12/01/17 19:32 Ang Chest [CT] Stat 12/01/17 19:48 Sodium Chloride 0.9% [Saline Flush] 10 ml FLUSH ASDIRECTED PRN 12/01/17 20:00 Iopamidol [Isovue-370 (76%)] 100 ml IV . DIRECTED Sodium Chloride 0.9% [Normal Saline] 100 ml IV ASDIRECTED 12/01/17 20:55 CULTURE BLOOD [BC] Stat 12/01/17 21:00 CULTURE BLOOD [BC] Stat - Assessment/Plan Last 24 Hours: My Active Orders 12/01/17 18:36 Chest 2V [CR] Stat 12/01/17 19:32 Ang Chest [CT] Stat 12/01/17 19:48 Sodium Chloride 0.9% [Saline Flush] 10 ml FLUSH ASDIRECTED PRN 12/01/17 20:00 Iopamidol [Isovue-370 (76%)] 100 ml IV . DIRECTED Sodium Chloride 0.9% [Normal Saline] 100 ml IV ASDIRECTED 12/01/17 20:55 CULTURE BLOOD [BC] Stat 12/01/17 21:00 CULTURE BLOOD [BC] Stat
[2017-12-01] MEDS ORDERED: Sodium Chloride 0.9% 10 ML Syringe FLUSH PRN (19:48)
[2017-12-01] MEDS ORDERED: Sodium Chloride 0.9% 100 ML IV SCH (20:00)
[2017-12-01] MEDS ORDERED: Iopamidol 755 Mg/ML 100 ML Bottle IV SCH (20:00)
[2017-12-01] MEDS ORDERED: cefTRIAXone 1 GM in Sodium Chloride 0.9% 50 ML IV ONE (20:55)
[2017-12-01] MEDS ORDERED: Azithromycin 250 MG Tab PO ONE (20:56)
[2017-12-01 21:45] VITALS: BP 157/73
--- NOTE | 2017-12-02 08:33 | CR ---
CHEST: 2 view CLINICAL HISTORY:Hypoxia, elevated d-dimer COMPARISON:11/11 and 10/23/2017 FINDINGS: The heart is mildly enlarged. Pulmonary vascularity is cephalized. There has been previous sternotomy. There is some elevation of the right hemidiaphragm which is chronic. There is right late ral pleural thickening similar to prior study. Interstitial markings are prominent and have increased since prior studies. IMPRESSION: Pulmonary vascular cephalization and interstitial prominence suggests some CHF. This is superimposed over chronic lung changes.
== END 2017-12-01 22:34 ==
LOC: JP.ED 18:01
DX: J18.9 Pneumonia, unspecified organism (principal); R09.02 Hypoxemia; E87.79 Other fluid overload; E78.00 Pure hypercholesterolemia, unspecified; I25.2 Old myocardial infarction; E11.42 Type 2 diabetes mellitus with diabetic polyneuropathy; Z88.8 Allergy status to other drugs, medicaments and biological substances; Z79.82 Long term (current) use of aspirin; Z79.899 Other long term (current) drug therapy; Z79.4 Long term (current) use of insulin
CPT/HCPCS: 36415; 71046; 71275; 80048; 83880; 84484; 85379; 87040; 96365; 99283; 99285; A9270; J0696; J7030; J7050; Q9967

== ENCOUNTER 2017-12-16 10:56 | Emergency (ER) | payer MEDICAID ==
[2017-12-16 11:15] VITALS: BP 128/57
--- NOTE | 2017-12-16 11:22 | EDM.PDOC ---
<Kumar Moreno - Last Filed: 12/16/17 12:18> ED HPI GENERAL MEDICAL PROBLEM - General Chief Complaint: Respiratory Problem Stated Complaint: SENT FROM CLINIC, LOW OXYGEN Time Seen by Provider: 12/16/17 11:15 deniese Pain Score (Numeric/FACES): 0 - Related Data Allergies Allergy/AdvReac Type Severity Reaction Status Date / Time Phenothiazines AdvReac Bradycardia Verified 12/16/17 11:14 Home Meds: Home Meds Acetaminophen [Tylenol] 650 mg PO ASDIRECTED PRN 03/07/14 [History] Insulin Aspart [Novolog Flexpen] 25 units SUBCUT ACBREAKFAST 03/07/14 [History] Nitroglycerin [Nitrostat] 0.4 mg SL ASDIRECTED 03/07/14 [History] RX: Aspirin [Adult Low Dose Aspirin EC] 81 mg PO DAILY 03/07/14 [History] RX: ClonazePAM [KlonoPIN] 0.5 mg PO BID 03/07/14 [History] RX: Clopidogrel [Plavix] 75 mg PO QPM 03/07/14 [History] RX: Sertraline HCl 150 mg PO DAILY 03/07/14 [History] Rosuvastatin Calcium [Crestor] 40 mg PO BEDTIME 03/07/14 [History] RX: amLODIPine [Norvasc] 2.5 mg PO ACBREAKFASTANDBED 03/14/14 [History] Gabapentin 100 mg PO BID 02/09/15 [History] QUEtiapine Fumarate [Seroquel Xr] 200 mg PO BEDTIME 02/09/15 [History] Insulin Glarg,Human.Rec.Analog [Lantus Solostar] 80 units SUBCUT BEDTIME [History] Pantoprazole Sodium 40 mg PO DAILY 04/20/17 [History] RX: Calcium Acetate [PhosLo] 2 tab PO DAILY 04/20/17 [History] RX: Nefazodone [Serzone] 150 tab PO DAILY 04/20/17 [History] Past Medical History HEENT History: Reports: Impaired Vision Cardiovascular History: Reports: Afib, CAD, High Cholesterol, [place], SOB on Exertion, Other (See Below) Other Cardiovascular History: pulmonary edema Respiratory History: Reports: Bronchitis, Recurrent, Pneumonia, Recurrent, Sleep Apnea, SOB, Other (See Below) Other Respiratory History: pulmonary edema Genitourinary History: Reports: Chronic Renal Insuffiency, Dialysis Musculoskeletal History: Reports: Gout Neurological History: Reports: Migraines, Neuropathy, Peripheral Psychiatric History: Reports: Anxiety, Bipolar, Depression, Mood Swings, OCD, Panic Attack Endocrine/Metabolic History: Reports: Diabetes, Type II, IDDM, Other (See Below) Other Endocrine/Metabolic History: thyroid disease Hematologic History: Reports: Anemia, Blood Transfusion(s) Immunologic History: Reports: Immunosuppression, Other (See Below) Other Immunologic History: dialysis patient Oncologic (Cancer) History: Reports: None Dermatologic History: Reports: Cellulitis - Infectious Disease History Infectious Disease History: Reports: Chicken Pox Other Infectious Disease History: unknown - Past Surgical History Cardiovascular Surgical History: Reports: Coronary Artery Bypass, Coronary Artery Stent, Percutaneous Transluminal Angioplasty Other Cardiovascular Surgeries/Procedures: CABG x3 2013 GI Surgical History: Reports: Colonoscopy Male Surgical History: Reports: Lithotripsy (ES[facility]) Social & Family History - Tobacco Use Smoking Status *Q: Never Smoker Second Hand Smoke Exposure: No - Caffeine Use Caffeine Use: Reports: Coffee, Soda, Tea - Alcohol Use Days Per Week of Alcohol Use: 0 - Recreational Drug Use Recreational Drug Use: No Course - Vital Signs Last Recorded V/S: Last Vital Signs Temp 35.8 C 12/16/17 11:18 Pulse 90 12/16/17 11:18 Resp 18 12/16/17 11:18 BP 128/57 L 12/16/17 11:18 Pulse Ox 97 12/16/17 12:00 - Re-Assessments/Exams Free Text/Narrative Re-Assessment/Exam: 12/16/17 12:16 Patient seen and evaluated with Monique Encarnacion, nurse practitioner student, her notes were reviewed and I concur with the assessment and treatment. Departure - Departure Disposition: Home, Self-Care 01 Clinical Impression: Short of breath on exertion - Discharge Information Instructions: Shortness of Breath, Adult, [id number] Referrals: Raz Francis MD [Primary Care Provider] - Forms: ED Department Discharge Care Plan Goals: You may increase oxygen by 1 liter with activity if you feel short of breath. When activity is done turn oxygen back to your usual setting. If symptoms return please come back to the ER or go to the clinic for follow-up with Dr. Francis. <Alysha,Ana - Last Filed: 12/16/17 12:20> ED HPI GENERAL MEDICAL PROBLEM - General Source of Information: Reports: Patient History Limitations: Reports: No Limitations - History of Present Illness INITIAL COMMENTS - FREE TEXT/NARRATIVE: [facility] dialysis. He was short of breath with a decreased O2 sat per the staff. Pt is just getting over pneumonia and had an episode of SOB last evening at the grocery store. Onset: Today Onset Date: 12/15/17 Onset Time: 17:00 Duration: Minutes:, Improving Location: Reports: Chest Severity: Mild Improves with: Reports: Rest Worsens with: Reports: Movement Context: Reports: Activity Associated Symptoms: Reports: Shortness of Breath (Pt when when roomed maintained 94% on 2L O2 - Denies SOB at this time) ED ROS GENERAL - Review of Systems Review Of Systems: See Below Constitutional: Reports: No Symptoms HEENT: Reports: No Symptoms Respiratory: Denies: Shortness of Breath, Wheezing, Cough, Sputum Cardiovascular: Denies: Chest Pain, Dyspnea on Exertion Endocrine: Reports: No Symptoms GI/Abdominal: Denies: Abdominal Pain : Reports: No Symptoms Musculoskeletal: Reports: No Symptoms Skin: Reports: No Symptoms Neurological: Denies: Confusion, Dizziness, Headache Psychiatric: Reports: No Symptoms Hematologic/Lymphatic: Reports: No Symptoms Immunologic: Reports: No Symptoms ED EXAM, GENERAL - Physical Exam Exam: See Below Free Text/Narrative:: Pt appears without distress. O2 at 2L via n/c Denies SOB, or any further complaints Exam Limited By: No Limitations General Appearance: Alert, WD/WN, No Apparent Distress Nose: No: Nasal Drainage Throat/Mouth: Normal Voice, No Airway Compromise Neck: Normal Inspection, Supple, Non-Tender Respiratory/Chest: No Respiratory Distress, Lungs Clear, Normal Breath Sounds Cardiovascular: Normal Peripheral Pulses, Regular Rate, Rhythm GI/Abdominal: Normal Bowel Sounds Extremities: Normal Inspection Neurological: Alert, Oriented Skin Exam: Warm, Dry, Other (dialysis port with dressing in place rt anticubital ) Course - Vital Signs Text/Narrative:: On exam pt is without distress. Denies SOB, explained that pneumonia may not be fully resolved and may take time to be 100%. If with exertion he feels he is SOB he may turn up O2 by 1L and then turn it down after activity. Departure - Departure Time of Disposition: 11:19 Condition: Fair - Problem List Review Problem List Initiated/Reviewed/Updated: Yes
== END 2017-12-16 12:05 | disposition home or self-care (01) ==
LOC: JP.ED 10:56
DX: R06.02 Shortness of breath (principal); I48.91 Unspecified atrial fibrillation; E11.9 Type 2 diabetes mellitus without complications; N18.9 Chronic kidney disease, unspecified; E11.40 Type 2 diabetes mellitus with diabetic neuropathy, unspecified; Z79.4 Long term (current) use of insulin; Z88.8 Allergy status to other drugs, medicaments and biological substances
CPT/HCPCS: 99282

== ENCOUNTER 2018-07-05 18:22 | Emergency (ER) | payer MEDICAID ==
[2018-07-05 18:34] VITALS: BP 128/57
--- NOTE | 2018-07-05 18:57 | EDM.PDOC ---
ED HPI GENERAL MEDICAL PROBLEM - General Chief Complaint: ENT Problem Stated Complaint: TOOTHACHE Time Seen by Provider: 07/05/18 18:45 Source of Information: Reports: Patient, RN Notes Reviewed History Limitations: Reports: No Limitations - History of Present Illness INITIAL COMMENTS - FREE TEXT/NARRATIVE: 57-year-old gentleman presents to the emergency department today complaint of dental pain, he is a dialysis patient he has been using ibuprofen to control his pain he has appointment with his dentist on Thursday of this week he is having pain on one of his top teeth, no fevers no facial swelling Right Upper Tooth/Teeth Pain Score (Numeric/FACES): 7 - Related Data Allergies Allergy/AdvReac Type Severity Reaction Status Date / Time Phenothiazines AdvReac Bradycardia Verified 07/05/18 18:40 Home Meds: Home Meds Acetaminophen [Tylenol] 650 mg PO ASDIRECTED PRN 03/07/14 [History] Aspirin [Adult Low Dose Aspirin EC] 81 mg PO DAILY 03/07/14 [History] ClonazePAM [KlonoPIN] 0.5 mg PO BID 03/07/14 [History] Clopidogrel [Plavix] 75 mg PO QPM 03/07/14 [History] Insulin Aspart [Novolog Flexpen] 25 units SUBCUT ACBREAKFAST 03/07/14 [History] Nitroglycerin [Nitrostat] 0.4 mg SL ASDIRECTED 03/07/14 [History] Rosuvastatin Calcium [Crestor] 40 mg PO BEDTIME 03/07/14 [History] Sertraline HCl 150 mg PO DAILY 03/07/14 [History] amLODIPine [Norvasc] 2.5 mg PO ACBREAKFASTANDBED 03/14/14 [History] Gabapentin 100 mg PO BID 02/09/15 [History] QUEtiapine Fumarate [Seroquel Xr] 200 mg PO BEDTIME 02/09/15 [History] Calcium Acetate [PhosLo] 2 tab PO DAILY 04/20/17 [History] Insulin Glarg,Human.Rec.Analog [Lantus Solostar] 80 units SUBCUT BEDTIME [History] Nefazodone [Serzone] 150 tab PO DAILY 04/20/17 [History] Pantoprazole Sodium 40 mg PO DAILY 04/20/17 [History] Past Medical History HEENT History: Reports: Impaired Vision Cardiovascular History: Reports: Afib, CAD, High Cholesterol, [place], SOB on Exertion, Other (See Below) Other Cardiovascular History: pulmonary edema Respiratory History: Reports: Bronchitis, Recurrent, Pneumonia, Recurrent, Sleep Apnea, SOB, Other (See Below) Other Respiratory History: pulmonary edema Genitourinary History: Reports: Chronic Renal Insuffiency, Dialysis Musculoskeletal History: Reports: Gout Neurological History: Reports: Migraines, Neuropathy, Peripheral Psychiatric History: Reports: Anxiety, Bipolar, Depression, Mood Swings, OCD, Panic Attack Endocrine/Metabolic History: Reports: Diabetes, Type II, IDDM, Other (See Below) Other Endocrine/Metabolic History: thyroid disease Hematologic History: Reports: Anemia, Blood Transfusion(s) Immunologic History: Reports: Immunosuppression, Other (See Below) Other Immunologic History: dialysis patient Oncologic (Cancer) History: Reports: None Dermatologic History: Reports: Cellulitis - Infectious Disease History Infectious Disease History: Reports: Chicken Pox Other Infectious Disease History: unknown - Past Surgical History Cardiovascular Surgical History: Reports: Coronary Artery Bypass, Coronary Artery Stent, Percutaneous Transluminal Angioplasty Other Cardiovascular Surgeries/Procedures: CABG x3 2014 GI Surgical History: Reports: Colonoscopy Male Surgical History: Reports: Lithotripsy (ESWL) Social & Family History - Tobacco Use Smoking Status *Q: Never Smoker - Caffeine Use Caffeine Use: Reports: Coffee, Soda, Tea - Recreational Drug Use Recreational Drug Use: No ED ROS ENT - Review of Systems Review Of Systems: See Below Constitutional: Reports: No Symptoms HEENT: Reports: Dental Pain Respiratory: Reports: No Symptoms Cardiovascular: Reports: No Symptoms GI/Abdominal: Reports: No Symptoms ED EXAM, ENT - Physical Exam Exam: See Below Text/Narrative:: Mouth mucosa is moist and pink there is no erythema or exudate noted in soft palate tongue is midline uvula is midline he is tender to palpation over tooth # 7 but I don't appreciate any erythema there is no edema around the tooth there is no facial swelling in that area Exam Limited By: No Limitations General Appearance: Alert, WD/WN, No Apparent Distress Respiratory/Chest: No Respiratory Distress Course - Vital Signs Last Recorded V/S: Last Vital Signs Temp 97.9 F 07/05/18 18:38 Pulse 119 H 07/05/18 18:38 Resp 16 07/05/18 18:38 BP 128/57 L 07/05/18 18:38 Pulse Ox 90 L 07/05/18 18:38 Departure - Departure Time of Disposition: 18:56 Disposition: Home, Self-Care 01 Condition: Good Clinical Impression: Pain, dental - Discharge Information Referrals: Raz Francis MD [Primary Care Provider] - Additional Instructions: Use ibuprofen for baseline pain control use hydrocodone for breakthrough pain, please keep your follow-up appointment with your dentist on Thursday of this week - Assessment/Plan Plan: Assessment Acuity = acute Site and laterality = dental pain Etiology = dental caries Manifestations = none Location of injury = Home Lab values = none Plan Prescription written for hydrocodone 5/325 one tablet by mouth every 3-4 hours when necessary total #12 tablets he'll follow-up with his dentist on Thursday of this week This note was dictated using [employer] voice recognition software please call with any questions on syntax or grammar.
== END 2018-07-05 19:04 | disposition home or self-care (01) ==
LOC: JP.ED 18:22
DX: K08.89 Other specified disorders of teeth and supporting structures (principal); I48.91 Unspecified atrial fibrillation; E78.00 Pure hypercholesterolemia, unspecified; I25.2 Old myocardial infarction; F31.9 Bipolar disorder, unspecified; N18.6 End stage renal disease; Z88.8 Allergy status to other drugs, medicaments and biological substances; Z79.82 Long term (current) use of aspirin; Z79.899 Other long term (current) drug therapy
CPT/HCPCS: 99283

== ENCOUNTER 2018-07-06 15:16 | Emergency (ER) | payer MEDICAID ==
[2018-07-06 16:08] VITALS: BP 189/77
--- NOTE | 2018-07-06 17:55 | EDM.PDOC ---
ED HPI GENERAL MEDICAL PROBLEM - General Chief Complaint: ENT Problem Stated Complaint: TOOTHACHE Time Seen by Provider: 07/06/18 17:40 Source of Information: Reports: Patient History Limitations: Reports: No Limitations - History of Present Illness INITIAL COMMENTS - FREE TEXT/NARRATIVE: 57 yo male dialysis patient was recently seen by his dentist who started him on clindamycin 300mg tid for a dental infection. He also have him a few hydrocodone tablets. Francis is here now because shortly after he took his first dose of clindamycin he developed swelling under the ankle of his jaw on the right. He assumed this was directly related to the clindamycin. He denies any itching, voice change or difficulty with breathing or swallowing. Onset: Today Onset Date: 07/06/18 Onset Time: 15:25 Duration: Hour(s): Location: Reports: Neck (R side) Quality: Reports: Dull Severity: Mild Improves with: Reports: None Worsens with: Reports: Other (unknown) Context: Reports: Other (See HPI) Associated Symptoms: Reports: Other (dental pain to a R upper canine). 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 (see below) (hydrocodone and clindamycin) - Related Data Allergies Allergy/AdvReac Type Severity Reaction Status Date / Time Phenothiazines AdvReac Bradycardia Verified 07/06/18 16:12 Home Meds: Home Meds Acetaminophen [Tylenol] 650 mg PO ASDIRECTED PRN 03/07/14 [History] Aspirin [Adult Low Dose Aspirin EC] 81 mg PO DAILY 03/07/14 [History] ClonazePAM [KlonoPIN] 0.5 mg PO BID 03/07/14 [History] Clopidogrel [Plavix] 75 mg PO QPM 03/07/14 [History] Insulin Aspart [Novolog Flexpen] 25 units SUBCUT ACBREAKFAST 03/07/14 [History] Nitroglycerin [Nitrostat] 0.4 mg SL ASDIRECTED 03/07/14 [History] Rosuvastatin Calcium [Crestor] 40 mg PO BEDTIME 03/07/14 [History] Sertraline HCl 150 mg PO DAILY 03/07/14 [History] amLODIPine [Norvasc] 2.5 mg PO ACBREAKFASTANDBED 03/14/14 [History] Gabapentin 100 mg PO BID 02/09/15 [History] QUEtiapine Fumarate [Seroquel Xr] 200 mg PO BEDTIME 02/09/15 [History] Calcium Acetate [PhosLo] 2 tab PO DAILY 04/20/17 [History] Insulin Glarg,Human.Rec.Analog [Lantus Solostar] 80 units SUBCUT BEDTIME [History] Nefazodone [Serzone] 150 tab PO DAILY 04/20/17 [History] Pantoprazole Sodium 40 mg PO DAILY 04/20/17 [History] Past Medical History HEENT History: Reports: Impaired Vision Cardiovascular History: Reports: Afib, CAD, High Cholesterol, PR, SOB on Exertion, Other (See Below) Other Cardiovascular History: pulmonary edema Respiratory History: Reports: Bronchitis, Recurrent, Pneumonia, Recurrent, Sleep Apnea, SOB, Other (See Below) Other Respiratory History: pulmonary edema Genitourinary History: Reports: Chronic Renal Insuffiency, Dialysis Musculoskeletal History: Reports: Gout Neurological History: Reports: Migraines, Neuropathy, Peripheral Psychiatric History: Reports: Anxiety, Bipolar, Depression, Mood Swings, OCD, Panic Attack Endocrine/Metabolic History: Reports: Diabetes, Type II, IDDM, Other (See Below) Other Endocrine/Metabolic History: thyroid disease Hematologic History: Reports: Anemia, Blood Transfusion(s) Immunologic History: Reports: Immunosuppression, Other (See Below) Other Immunologic History: dialysis patient Oncologic (Cancer) History: Reports: None Dermatologic History: Reports: Cellulitis - Infectious Disease History Infectious Disease History: Reports: Chicken Pox Other Infectious Disease History: unknown - Past Surgical History Cardiovascular Surgical History: Reports: Coronary Artery Bypass, Coronary Artery Stent, Percutaneous Transluminal Angioplasty Other Cardiovascular Surgeries/Procedures: CABG x3 2014 GI Surgical History: Reports: Colonoscopy Male Surgical History: Reports: Lithotripsy (ESWL) Social & Family History - Tobacco Use Smoking Status *Q: Never Smoker Second Hand Smoke Exposure: No - Caffeine Use Caffeine Use: Reports: Coffee - Recreational Drug Use Recreational Drug Use: No ED ROS ENT - Review of Systems Review Of Systems: See Below Constitutional: Reports: No Symptoms HEENT: Reports: Dental Pain (R upper canine) Respiratory: Reports: No Symptoms GI/Abdominal: Reports: No Symptoms Skin: Reports: No Symptoms Neurological: Reports: No Symptoms ED EXAM, ENT - Physical Exam Exam: See Below Exam Limited By: No Limitations General Appearance: Alert, WD/WN, No Apparent Distress Eye Exam: Bilateral Eye: Normal Inspection Ears: Normal External Exam, Normal Canal, Hearing Grossly Normal, Normal TMs Nose: Normal Inspection, No Blood Mouth/Throat: Normal Inspection, Normal Lips, Normal Oropharynx Head: Atraumatic, Normocephalic Neck: Full Range of Motion, Other (R submandibular salivary gland is very swollen and firm, not red or hot. ). No: Limited Range of Motion, Lymphadenopathy (R), Lymphadenopathy (L) Respiratory/Chest: No Respiratory Distress, Lungs Clear, Normal Breath Sounds, No Accessory Muscle Use Cardiovascular: Regular Rate, Rhythm, No Edema Neurological: Alert, Oriented, CN II-XII Intact, Normal Cognition, No Motor/ Sensory Deficits Psychiatric: Normal Affect, Normal Mood Skin: Warm, Dry, Intact, Normal Color, No Rash Course - Vital Signs Last Recorded V/S: Last Vital Signs Temp 36.9 C 07/06/18 16:13 Pulse 101 H 07/06/18 16:13 Resp 20 07/06/18 16:13 BP 189/77 H 07/06/18 16:13 Pulse Ox 95 07/06/18 16:13 Departure - Departure Time of Disposition: 17:56 Disposition: Home, Self-Care 01 Condition: Good Clinical Impression: Submandibular duct obstruction, Pain, dental - Discharge Information *PRESCRIPTION DRUG MONITORING PROGRAM REVIEWED*: No *COPY OF PRESCRIPTION DRUG MONITORING REPORT IN PATIENT LORETO: No Referrals: Raz Francis MD [Primary Care Provider] - Additional Instructions: Take clindamycin as directed. Take [place] as needed for pain relief. F/U with your dentist regarding your tooth infection. See your family doctor by of this week if possible for recheck regarding your submandibular gland duct stone/obstruction.
== END 2018-07-06 18:10 | disposition home or self-care (01) ==
LOC: JP.ED 15:16
DX: K11.8 Other diseases of salivary glands (principal); K08.89 Other specified disorders of teeth and supporting structures; Z88.8 Allergy status to other drugs, medicaments and biological substances; Z79.82 Long term (current) use of aspirin; Z79.899 Other long term (current) drug therapy; I25.2 Old myocardial infarction
CPT/HCPCS: 99283

== ENCOUNTER 2018-07-07 11:18 | Emergency (ER) | payer MEDICAID ==
[2018-07-07 11:29] VITALS: BP 133/51
--- NOTE | 2018-07-07 12:11 | EDM.PDOC ---
ED HPI GENERAL MEDICAL PROBLEM - General Chief Complaint: General Stated Complaint: MEDICAL VIA [place] Time Seen by Provider: 07/07/18 12:06 Source of Information: Reports: Patient, EMS History Limitations: Reports: No Limitations - History of Present Illness INITIAL COMMENTS - FREE TEXT/NARRATIVE: pt had dialysis today and when he got home he noticed a fair amount of blood on his shirt. When ems got there a pressure dressing was applied and the bleeding has pretty much stopped. Onset: Today, Sudden Duration: Hour(s): Location: Reports: Upper Extremity, Right Associated Symptoms: Reports: No Other Symptoms - Related Data Allergies Allergy/AdvReac Type Severity Reaction Status Date / Time Phenothiazines AdvReac Bradycardia Verified 07/06/18 16:12 Home Meds: Home Meds Acetaminophen [Tylenol] 650 mg PO ASDIRECTED PRN 03/07/14 [History] Aspirin [Adult Low Dose Aspirin EC] 81 mg PO DAILY 03/07/14 [History] ClonazePAM [KlonoPIN] 0.5 mg PO BID 03/07/14 [History] Clopidogrel [Plavix] 75 mg PO QPM 03/07/14 [History] Insulin Aspart [Novolog Flexpen] 25 units SUBCUT ACBREAKFAST 03/07/14 [History] Nitroglycerin [Nitrostat] 0.4 mg SL ASDIRECTED 03/07/14 [History] Rosuvastatin Calcium [Crestor] 40 mg PO BEDTIME 03/07/14 [History] Sertraline HCl 150 mg PO DAILY 03/07/14 [History] amLODIPine [Norvasc] 2.5 mg PO ACBREAKFASTANDBED 03/14/14 [History] Gabapentin 100 mg PO BID 02/09/15 [History] QUEtiapine Fumarate [Seroquel Xr] 200 mg PO BEDTIME 02/09/15 [History] Calcium Acetate [PhosLo] 2 tab PO DAILY 04/20/17 [History] Insulin Glarg,Human.Rec.Analog [Lantus Solostar] 80 units SUBCUT BEDTIME [History] Nefazodone [Serzone] 150 tab PO DAILY 04/20/17 [History] Pantoprazole Sodium 40 mg PO DAILY 04/20/17 [History] Acetaminophen/HYDROcodone [[place] 325-5 MG] 1 - 2 tab PO Q6H PRN #14 tab [Rx] Past Medical History HEENT History: Reports: Impaired Vision Cardiovascular History: Reports: Afib, CAD, High Cholesterol, [place], SOB on Exertion, Other (See Below) Other Cardiovascular History: pulmonary edema Respiratory History: Reports: Bronchitis, Recurrent, Pneumonia, Recurrent, Sleep Apnea, SOB, Other (See Below) Other Respiratory History: pulmonary edema Genitourinary History: Reports: Chronic Renal Insuffiency, Dialysis Musculoskeletal History: Reports: Gout Neurological History: Reports: Migraines, Neuropathy, Peripheral Psychiatric History: Reports: Anxiety, Bipolar, Depression, Mood Swings, OCD, Panic Attack Endocrine/Metabolic History: Reports: Diabetes, Type II, IDDM, Other (See Below) Other Endocrine/Metabolic History: thyroid disease Hematologic History: Reports: Anemia, Blood Transfusion(s) Immunologic History: Reports: Immunosuppression, Other (See Below) Other Immunologic History: dialysis patient Oncologic (Cancer) History: Reports: None Dermatologic History: Reports: Cellulitis - Infectious Disease History Infectious Disease History: Reports: Chicken Pox Other Infectious Disease History: unknown - Past Surgical History Cardiovascular Surgical History: Reports: Coronary Artery Bypass, Coronary Artery Stent, Percutaneous Transluminal Angioplasty Other Cardiovascular Surgeries/Procedures: CABG x3 2014 GI Surgical History: Reports: Colonoscopy Male Surgical History: Reports: Lithotripsy (ESWL) Social & Family History - Tobacco Use Smoking Status *Q: Never Smoker Second Hand Smoke Exposure: No - Caffeine Use Caffeine Use: Reports: Coffee - Recreational Drug Use Recreational Drug Use: No ED ROS GENERAL - Review of Systems Review Of Systems: See Below Constitutional: Reports: No Symptoms HEENT: Reports: No Symptoms Respiratory: Reports: No Symptoms Cardiovascular: Reports: No Symptoms Endocrine: Reports: No Symptoms GI/Abdominal: Reports: No Symptoms : Reports: No Symptoms Musculoskeletal: Reports: No Symptoms Skin: Reports: No Symptoms ED EXAM, GENERAL - Physical Exam Exam: See Below Free Text/Narrative:: pt arrived with bleeding from the shunt site on his rt arm. With pressure that EMS applied it has now stopped. He is ok with his vital signs. Exam Limited By: No Limitations General Appearance: Alert, Anxious Ears: Normal TMs Nose: Normal Inspection Throat/Mouth: Normal Inspection Head: Atraumatic Neck: Normal Inspection Respiratory/Chest: No Respiratory Distress Cardiovascular: Regular Rate, Rhythm Extremities: Other (pt is not bleeding from the shunt at this time pressure dressing was reapplied. ) Neurological: Alert, Oriented, Normal Cognition Course - Vital Signs Last Recorded V/S: Last Vital Signs Temp 36.6 C 07/07/18 11:29 Pulse 102 H 07/07/18 11:29 Resp 18 07/07/18 11:29 BP 133/51 L 07/07/18 11:29 Pulse Ox 95 07/07/18 11:29 - Orders/Labs/Meds Labs: Laboratory Tests 07/07/18 Range/Units 11:27 WBC 6.4 (4.5-11.0) K/uL RBC 4.08 L (4.30-5.90) M/uL Hgb 12.1 D (12.0-15.0) g/dL Hct 36.5 L (40.0-54.0) % MCV 90 (80-98) fL MCH 30 (27-31) pg MCHC 33 (32-36) % Plt Count 164 (150-400) K/uL Neut % (Auto) 78 H (36-66) % Lymph % (Auto) 10 L (24-44) % [place] % (Auto) 10 H (2-6) % Eos % (Auto) 1 L (2-4) % Baso % (Auto) 0 (0-1) % - Re-Assessments/Exams Free Text/Narrative Re-Assessment/Exam: 07/07/18 12:14 cbc was ok. Pt had lunch. Departure - Departure Time of Disposition: 12:15 Disposition: Home, Self-Care 01 Condition: Fair Clinical Impression: Bleeding from dialysis shunt - Discharge Information Referrals: PCP,None [Primary Care Provider] - Care Plan Goals: leave pressure on area for 4-5 hours then remove.
== END 2018-07-07 12:30 | disposition home or self-care (01) ==
LOC: JP.ED 11:18
DX: T82.838A Hemorrhage due to vascular prosthetic devices, implants and grafts, initial encounter (principal); E11.22 Type 2 diabetes mellitus with diabetic chronic kidney disease; N18.9 Chronic kidney disease, unspecified; E11.40 Type 2 diabetes mellitus with diabetic neuropathy, unspecified; F31.9 Bipolar disorder, unspecified; F41.9 Anxiety disorder, unspecified; I48.91 Unspecified atrial fibrillation; I25.2 Old myocardial infarction; Z79.899 Other long term (current) drug therapy; Z99.2 Dependence on renal dialysis; Z79.4 Long term (current) use of insulin; Z79.82 Long term (current) use of aspirin; Z88.8 Allergy status to other drugs, medicaments and biological substances
CPT/HCPCS: 36415; 85025; 99284

== ENCOUNTER 2018-08-17 14:03 | Emergency (ER) | payer MEDICAID ==
[2018-08-17 14:41] VITALS: BP 176/59
--- NOTE | 2018-08-17 15:13 | EDM.PDOC ---
ED HPI GENERAL MEDICAL PROBLEM - General Chief Complaint: General Stated Complaint: CHEST PAIN Time Seen by Provider: 08/17/18 14:45 Source of Information: Reports: Patient History Limitations: Reports: No Limitations - History of Present Illness INITIAL COMMENTS - FREE TEXT/NARRATIVE: 58-year-old male with known valvular heart disease had a pain in his chest last evening that lasted 1 second. It was a sharp brief pain, but today he kept thinking about it so came in to be evaluated. He has no shortness of breath or chest pain today, no nausea or vomiting, no diaphoresis. He thinks the pain lasted about "1 second". Onset: Sudden Duration: Other (1 second) Associated Symptoms: Reports: No Other Symptoms - Related Data Allergies Allergy/AdvReac Type Severity Reaction Status Date / Time Phenothiazines AdvReac Bradycardia Verified 07/06/18 16:12 Home Meds: Home Meds Acetaminophen [Tylenol] 650 mg PO ASDIRECTED PRN 03/07/14 [History] Aspirin [Adult Low Dose Aspirin EC] 81 mg PO DAILY 03/07/14 [History] ClonazePAM [KlonoPIN] 0.5 mg PO BID 03/07/14 [History] Clopidogrel [Plavix] 75 mg PO QPM 03/07/14 [History] Insulin Aspart [Novolog Flexpen] 25 units SUBCUT ACBREAKFAST 03/07/14 [History] Nitroglycerin [Nitrostat] 0.4 mg SL ASDIRECTED 03/07/14 [History] Rosuvastatin Calcium [Crestor] 40 mg PO BEDTIME 03/07/14 [History] Sertraline HCl 150 mg PO DAILY 03/07/14 [History] amLODIPine [Norvasc] 2.5 mg PO ACBREAKFASTANDBED 03/14/14 [History] Gabapentin 100 mg PO BID 02/09/15 [History] QUEtiapine Fumarate [Seroquel Xr] 200 mg PO BEDTIME 02/09/15 [History] Calcium Acetate [PhosLo] 2 tab PO DAILY 04/20/17 [History] Insulin Glarg,Human.Rec.Analog [Lantus Solostar] 80 units SUBCUT BEDTIME [History] Nefazodone [Serzone] 150 tab PO DAILY 04/20/17 [History] Pantoprazole Sodium 40 mg PO DAILY 04/20/17 [History] Acetaminophen/HYDROcodone [[place] 325-5 MG] 1 - 2 tab PO Q6H PRN #14 tab [Rx] Ezetimibe 10 mg PO DAILY 08/17/18 [History] NIFEdipine [Adalat cc] 30 mg PO DAILY 08/17/18 [History] Past Medical History HEENT History: Reports: Impaired Vision Cardiovascular History: Reports: Afib, CAD, High Cholesterol, [place], SOB on Exertion, Other (See Below) Other Cardiovascular History: pulmonary edema Respiratory History: Reports: Bronchitis, Recurrent, Pneumonia, Recurrent, Sleep Apnea, SOB, Other (See Below) Other Respiratory History: pulmonary edema Genitourinary History: Reports: Chronic Renal Insuffiency, Dialysis Musculoskeletal History: Reports: Gout Neurological History: Reports: Migraines, Neuropathy, Peripheral Psychiatric History: Reports: Anxiety, Bipolar, Depression, Mood Swings, OCD, Panic Attack Endocrine/Metabolic History: Reports: Diabetes, Type II, IDDM, Other (See Below) Other Endocrine/Metabolic History: thyroid disease Hematologic History: Reports: Anemia, Blood Transfusion(s) Immunologic History: Reports: Immunosuppression, Other (See Below) Other Immunologic History: dialysis patient Oncologic (Cancer) History: Reports: None Dermatologic History: Reports: Cellulitis - Infectious Disease History Infectious Disease History: Reports: Chicken Pox Other Infectious Disease History: unknown - Past Surgical History Cardiovascular Surgical History: Reports: Coronary Artery Bypass, Coronary Artery Stent, Percutaneous Transluminal Angioplasty Other Cardiovascular Surgeries/Procedures: CABG x3 2014 GI Surgical History: Reports: Colonoscopy Male Surgical History: Reports: Lithotripsy (ESWL) Social & Family History - Tobacco Use Smoking Status *Q: Unknown Ever Smoked - Caffeine Use Caffeine Use: Reports: Coffee - Recreational Drug Use Recreational Drug Use: No ED ROS GENERAL - Review of Systems Review Of Systems: See Below Constitutional: Denies: Fever, Chills HEENT: Reports: No Symptoms Respiratory: Denies: Shortness of Breath, Pleuritic Chest Pain Cardiovascular: Denies: Palpitations GI/Abdominal: Denies: Nausea, Vomiting Skin: Reports: No Symptoms Psychiatric: Reports: Anxiety, Other (Underlying stress right now, 2 of his nieces were murdered last week) ED EXAM, GENERAL - Physical Exam Exam: See Below Exam Limited By: No Limitations General Appearance: Alert, No Apparent Distress Respiratory/Chest: No Respiratory Distress, Lungs Clear Cardiovascular: Regular Rate, Rhythm, Systolic Murmur (2/6 systolic flow murmur) . No: Extra Beats GI/Abdominal: Soft, Non-Tender Extremities: Pedal Edema (Symmetric trace in the lower extremities) Neurological: Alert, Oriented Psychiatric: Normal Affect, Normal Mood Course - Vital Signs Last Recorded V/S: Last Vital Signs Temp 97.8 F 08/17/18 14:41 Pulse 91 08/17/18 14:41 Resp 13 08/17/18 14:41 BP 176/59 H 08/17/18 14:41 Pulse Ox 93 L 08/17/18 14:41 - Re-Assessments/Exams Free Text/Narrative Re-Assessment/Exam: 08/17/18 15:11 Patient was reassured that heart pain does not come and go in one second. If pain is recurring he can always return for recheck, or if it is persistent. Otherwise just continue regular medications and dialysis schedule. Departure - Departure Time of Disposition: 15:22 Disposition: Home, Self-Care 01 Condition: Good Clinical Impression: Chest pain, non-cardiac - Discharge Information Instructions: Nonspecific Chest Pain Referrals: Raz Francis MD [Primary Care Provider] - Forms: ED Department Discharge Care Plan Goals: Continue your current medications and dialysis schedule. Recheck if pain starts recurring frequently or is persistent.
== END 2018-08-17 15:22 | disposition home or self-care (01) ==
LOC: JP.ED 14:03
DX: R07.89 Other chest pain (principal); E11.22 Type 2 diabetes mellitus with diabetic chronic kidney disease; N18.9 Chronic kidney disease, unspecified; E11.40 Type 2 diabetes mellitus with diabetic neuropathy, unspecified; E78.00 Pure hypercholesterolemia, unspecified; I25.2 Old myocardial infarction; I48.91 Unspecified atrial fibrillation; F31.9 Bipolar disorder, unspecified; Z79.899 Other long term (current) drug therapy; Z79.82 Long term (current) use of aspirin; Z88.8 Allergy status to other drugs, medicaments and biological substances
CPT/HCPCS: 99284

== ENCOUNTER 2019-01-04 12:21 | Emergency (ER) | payer MEDICAID ==
[2019-01-04] MEDS ORDERED: Insulin Regular, Human 100 Units/ML 3 ML Vial SUBCUT ONE ×2 (12:25→15:14)
--- NOTE | 2019-01-04 13:09 | EDM.PDOC ---
ED HPI GENERAL MEDICAL PROBLEM - General Chief Complaint: General Stated Complaint: DIZZINESS, SENT FROM CLINIC Time Seen by Provider: 01/04/19 13:00 Source of Information: Reports: Patient, Old Records, Provider History Limitations: Reports: No Limitations - History of Present Illness INITIAL COMMENTS - FREE TEXT/NARRATIVE: 58 yo dialysis patient was sent to the ER for low BP for the past couple of days. Labs today showed a BS of about 400(patient says running high for a couple of weeks), high potassium and low sodium. Francis says he has been a little light-headed. His BP here in the ER is 140 systolic. No chest pain, SOB, or diaphoresis. Sent from the clinic for insulin, if he doesn't improve transfer to [facility] was requested. Told nursing he didn't take any insulin today at all. 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 GRINDER: Reports: Other (see below) (none) - Related Data Allergies Allergy/AdvReac Type Severity Reaction Status Date / Time Phenothiazines AdvReac Bradycardia Verified 01/04/19 13:02 Home Meds: Home Meds Acetaminophen [Tylenol] 650 mg PO ASDIRECTED PRN 03/07/14 [History] Aspirin [Adult Low Dose Aspirin EC] 81 mg PO DAILY 03/07/14 [History] ClonazePAM [KlonoPIN] 0.5 mg PO BID 03/07/14 [History] Clopidogrel [Plavix] 75 mg PO QPM 03/07/14 [History] Insulin Aspart [Novolog Flexpen] 25 units SUBCUT ACBREAKFAST 03/07/14 [History] Nitroglycerin [Nitrostat] 0.4 mg SL ASDIRECTED 03/07/14 [History] Rosuvastatin Calcium [Crestor] 40 mg PO BEDTIME 03/07/14 [History] Sertraline HCl 150 mg PO DAILY 03/07/14 [History] amLODIPine [Norvasc] 2.5 mg PO ACBREAKFASTANDBED 03/14/14 [History] Gabapentin 100 mg PO BID 02/09/15 [History] QUEtiapine Fumarate [Seroquel Xr] 200 mg PO BEDTIME 02/09/15 [History] Calcium Acetate [PhosLo] 2 tab PO DAILY 04/20/17 [History] Insulin Glarg,Human.Rec.Analog [Lantus Solostar] 80 units SUBCUT BEDTIME [History] Nefazodone [Serzone] 150 tab PO DAILY 04/20/17 [History] Pantoprazole Sodium 40 mg PO DAILY 04/20/17 [History] Ezetimibe 10 mg PO DAILY 08/17/18 [History] NIFEdipine [Adalat cc] 30 mg PO DAILY 08/17/18 [History] Past Medical History HEENT History: Reports: Impaired Vision Cardiovascular History: Reports: Afib, CAD, High Cholesterol, RI, SOB on Exertion, Other (See Below) Other Cardiovascular History: pulmonary edema Respiratory History: Reports: Bronchitis, Recurrent, Pneumonia, Recurrent, Sleep Apnea, SOB, Other (See Below) Other Respiratory History: pulmonary edema Genitourinary History: Reports: Chronic Renal Insuffiency, Dialysis Musculoskeletal History: Reports: Gout Neurological History: Reports: Migraines, Neuropathy, Peripheral Psychiatric History: Reports: Anxiety, Bipolar, Depression, Mood Swings, OCD, Panic Attack Endocrine/Metabolic History: Reports: Diabetes, Type II, IDDM, Other (See Below) Other Endocrine/Metabolic History: thyroid disease Hematologic History: Reports: Anemia, Blood Transfusion(s) Immunologic History: Reports: Immunosuppression, Other (See Below) Other Immunologic History: dialysis patient Oncologic (Cancer) History: Reports: None Dermatologic History: Reports: Cellulitis - Infectious Disease History Infectious Disease History: Reports: Chicken Pox Other Infectious Disease History: unknown - Past Surgical History Cardiovascular Surgical History: Reports: Coronary Artery Bypass, Coronary Artery Stent, Percutaneous Transluminal Angioplasty Other Cardiovascular Surgeries/Procedures: CABG x3 2014 GI Surgical History: Reports: Colonoscopy Male Surgical History: Reports: Lithotripsy (ESWL) Social & Family History - Caffeine Use Caffeine Use: Reports: Coffee ED ROS GENERAL - Review of Systems Review Of Systems: See Below Constitutional: Reports: Malaise HEENT: Reports: No Symptoms Respiratory: Reports: No Symptoms Cardiovascular: Reports: Lightheadedness Endocrine: Reports: No Symptoms, High Glucose GI/Abdominal: Reports: No Symptoms : Reports: Other (oliguria, chronic) Musculoskeletal: Reports: No Symptoms Skin: Reports: No Symptoms Neurological: Reports: No Symptoms ED EXAM, GENERAL - Physical Exam Exam: See Below Exam Limited By: No Limitations General Appearance: Alert, WD/WN, No Apparent Distress, Obese Eye Exam: Bilateral Eye: Normal Inspection Ears: Normal External Exam, Normal Canal, Hearing Grossly Normal Ear Exam: Bilateral Ear: Auricle Normal, Canal Normal Nose: Normal Inspection, No Blood Throat/Mouth: Normal Inspection, Normal Lips, Normal Oropharynx, Normal Voice, No Airway Compromise Head: Atraumatic, Normocephalic Neck: Normal Inspection Respiratory/Chest: No Respiratory Distress, Lungs Clear, Normal Breath Sounds, No Accessory Muscle Use Cardiovascular: Regular Rate, Rhythm, No Edema GI/Abdominal: Normal Bowel Sounds, Soft, Non-Tender, No Distention Back Exam: Normal Inspection. No: CVA Tenderness (R), CVA Tenderness (L) Extremities: Normal Inspection, Normal Range of Motion, Non-Tender Neurological: Alert, Oriented, CN II-XII Intact, Normal Cognition, No Motor/ Sensory Deficits Psychiatric: Normal Affect, Normal Mood Skin Exam: Warm, Dry, Intact, Normal Color, No Rash Course - Vital Signs Text/Narrative:: labs a lot better after the insulin. No ketones in urine. Last Recorded V/S: Last Vital Signs Temp 36.4 C 01/04/19 13:01 Pulse 94 01/04/19 15:52 Resp 18 01/04/19 13:06 BP 161/54 H 01/04/19 15:52 Pulse Ox 99 01/04/19 15:52 - Orders/Labs/Meds Labs: Laboratory Tests 01/04/19 01/04/19 Range/Units 12:59 16:36 Sodium 129 L (140-148) mmol/L Potassium 5.2 (3.6-5.2) mmol/L Chloride 89 L (100-108) mmol/L Carbon Dioxide 28 (21-32) mmol/L Anion Gap 17.2 H (5.0-14.0) mmol/L BUN 67 H (7-18) mg/dL Creatinine 10.4 H* (0.8-1.3) mg/dL Est Cr Clr Drug Dosing 6.90 mL/min Estimated GFR (MDRD) 5 L (>60) Glucose 227 H (74-106) mg/dL Calcium 9.4 (8.5-10.1) mg/dL Urine Color Yellow Urine Appearance Clear Urine pH 8.0 (4.5-8.0) Ur Specific [place] 1.005 L (1.008-1.030) Urine Protein 100 H (NEGATIVE) mg/dL Urine Glucose (UA) 100 H (NEGATIVE) mg/dL Urine Ketones Negative (NEGATIVE) mg/dL Urine Occult Blood Moderate (NEGATIVE) Urine Nitrite Negative (NEGAITVE) Urine Bilirubin Negative (NEGATIVE) Urine Urobilinogen Normal (NORMAL) mg/dL Ur Leukocyte Esterase Negative (NEGATIVE) Urine RBC 0-5 (0-5) Urine WBC 0-5 (0-5) Ur Epithelial Cells Not seen Amorphous Sediment Not seen Urine Bacteria Not seen Urine Mucus Not seen Urine Other Meds: Medications Discontinued Medications Generic Name Dose Route Start Last Admin Trade Name Freq PRN Reason Stop Dose Admin Insulin Human Regular 24 unit 01/04/19 12:25 01/04/19 13:15 Humulin R SUBCUT 01/04/19 12:26 24 units ONETIME ONE Administration Insulin Human Regular 12 unit 01/04/19 15:14 01/04/19 15:33 Humulin R SUBCUT 01/04/19 15:15 12 units ONETIME ONE Administration Departure - Departure Time of Disposition: 17:00 Disposition: Home, Self-Care 01 Condition: Fair Clinical Impression: Hyperglycemia, Hyponatremia - Discharge Information *PRESCRIPTION DRUG MONITORING PROGRAM REVIEWED*: No *COPY OF PRESCRIPTION DRUG MONITORING REPORT IN PATIENT LORETO: No Instructions: Hyperglycemia, [id number] Referrals: Raz Francis MD [Primary Care Provider] - Forms: ED Department Discharge Additional Instructions: Keep a closer eye on your blood sugars and don't forget to take your insulin. Recheck with your provider soon.
[2019-01-04 17:11] VITALS: BP 143/48; PULSE 91
== END 2019-01-04 17:11 | disposition home or self-care (01) ==
LOC: JP.ED 12:21
DX: E11.65 Type 2 diabetes mellitus with hyperglycemia (principal); E87.1 Hypo-osmolality and hyponatremia; I48.91 Unspecified atrial fibrillation; E78.00 Pure hypercholesterolemia, unspecified; I25.2 Old myocardial infarction; N18.9 Chronic kidney disease, unspecified; E11.22 Type 2 diabetes mellitus with diabetic chronic kidney disease; E11.40 Type 2 diabetes mellitus with diabetic neuropathy, unspecified; F31.9 Bipolar disorder, unspecified; F41.9 Anxiety disorder, unspecified; Z88.8 Allergy status to other drugs, medicaments and biological substances; Z79.82 Long term (current) use of aspirin; Z79.02 Long term (current) use of antithrombotics/antiplatelets; Z79.899 Other long term (current) drug therapy; Z79.4 Long term (current) use of insulin; Z99.2 Dependence on renal dialysis
CPT/HCPCS: 36415; 80048; 81001; 82962; 99283; J1815

== ENCOUNTER 2019-01-07 10:42 | Emergency (ER) | payer MEDICAID ==
--- NOTE | 2019-01-07 11:55 | EDM.PDOC ---
ED HPI GENERAL MEDICAL PROBLEM - General Chief Complaint: Syncope Stated Complaint: [facility] Time Seen by Provider: 01/07/19 11:00 Source of Information: Reports: Patient, EMS History Limitations: Reports: No Limitations - History of Present Illness INITIAL COMMENTS - FREE TEXT/NARRATIVE: 58-year-old male, dialysis patient an insulin-dependent diabetic who has been having frequent syncopal episodes around his dialysis procedures. Over the last several weeks however he's been having more persistent dizziness, was seen at the clinic on Thursday and was found to be hypotensive but stable so continued his dialysis schedule. He received dialysis on Thursday, today he showed up for his normal dialysis run and fainted while waiting for his procedure. He denies any shortness of breath or chest pain. EMS was called and he was found to have a blood pressure of 80/30 so was transported to the hospital. He is in atrial fibrillation chronically, his rate is well-controlled. He did look somewhat pale on arrival which improved. Mild diaphoresis. Onset: Unknown/Unsure Associated Symptoms: Reports: Confusion (Some confusion after waking up from his syncope), Diaphoresis, Malaise, Syncope, Weakness. Denies: Chest Pain, Cough, Nausea/Vomiting, Shortness of Breath - Related Data Allergies Allergy/AdvReac Type Severity Reaction Status Date / Time Phenothiazines AdvReac Bradycardia Verified 01/07/19 10:45 Home Meds: Home Meds Acetaminophen [Tylenol] 650 mg PO ASDIRECTED PRN 03/07/14 [History] Aspirin [Adult Low Dose Aspirin EC] 81 mg PO DAILY 03/07/14 [History] ClonazePAM [KlonoPIN] 0.5 mg PO BID 03/07/14 [History] Clopidogrel [Plavix] 75 mg PO QPM 03/07/14 [History] Insulin Aspart [Novolog Flexpen] 25 units SUBCUT ACBREAKFAST 03/07/14 [History] Nitroglycerin [Nitrostat] 0.4 mg SL ASDIRECTED 03/07/14 [History] Rosuvastatin Calcium [Crestor] 40 mg PO BEDTIME 03/07/14 [History] Sertraline HCl 150 mg PO DAILY 03/07/14 [History] amLODIPine [Norvasc] 2.5 mg PO ACBREAKFASTANDBED 03/14/14 [History] Gabapentin 100 mg PO BID 02/09/15 [History] QUEtiapine Fumarate [Seroquel Xr] 200 mg PO BEDTIME 02/09/15 [History] Calcium Acetate [PhosLo] 2 tab PO DAILY 04/20/17 [History] Insulin Glarg,Human.Rec.Analog [Lantus Solostar] 80 units SUBCUT BEDTIME [History] Nefazodone [Serzone] 150 tab PO DAILY 04/20/17 [History] Pantoprazole Sodium 40 mg PO DAILY 04/20/17 [History] Ezetimibe 10 mg PO DAILY 08/17/18 [History] NIFEdipine [Adalat cc] 30 mg PO DAILY 08/17/18 [History] Past Medical History HEENT History: Reports: Impaired Vision Cardiovascular History: Reports: Afib, CAD, High Cholesterol, [place], SOB on Exertion, Other (See Below) Other Cardiovascular History: pulmonary edema Respiratory History: Reports: Bronchitis, Recurrent, Pneumonia, Recurrent, Sleep Apnea, SOB, Other (See Below) Other Respiratory History: pulmonary edema Genitourinary History: Reports: Chronic Renal Insuffiency, Dialysis Musculoskeletal History: Reports: Gout Neurological History: Reports: Migraines, Neuropathy, Peripheral Psychiatric History: Reports: Anxiety, Bipolar, Depression, Mood Swings, OCD, Panic Attack Endocrine/Metabolic History: Reports: Diabetes, Type II, IDDM, Other (See Below) Other Endocrine/Metabolic History: thyroid disease Hematologic History: Reports: Anemia, Blood Transfusion(s) Immunologic History: Reports: Immunosuppression, Other (See Below) Other Immunologic History: dialysis patient Oncologic (Cancer) History: Reports: None Dermatologic History: Reports: Cellulitis - Infectious Disease History Infectious Disease History: Reports: Chicken Pox Other Infectious Disease History: unknown - Past Surgical History Cardiovascular Surgical History: Reports: Coronary Artery Bypass, Coronary Artery Stent, Percutaneous Transluminal Angioplasty Other Cardiovascular Surgeries/Procedures: CABG x3 2014 GI Surgical History: Reports: Colonoscopy Male Surgical History: Reports: Lithotripsy (ESWL) Social & Family History - Tobacco Use Smoking Status *Q: Never Smoker - Caffeine Use Caffeine Use: Reports: Coffee, Energy Drinks, Soda - Recreational Drug Use Recreational Drug Use: No ED ROS GENERAL - Review of Systems Review Of Systems: See Below Constitutional: Reports: Malaise. Denies: Fever, Chills HEENT: Reports: No Symptoms Respiratory: Denies: Shortness of Breath Cardiovascular: Denies: Chest Pain GI/Abdominal: Denies: Abdominal Pain : Reports: Other (Chronic renal failure, dialysis patient) Skin: Reports: Diaphoresis Neurological: Reports: Dizziness, Syncope ED EXAM, GENERAL - Physical Exam Exam: See Below Exam Limited By: No Limitations General Appearance: Alert, No Apparent Distress Eye Exam: Bilateral Eye: EOMI Respiratory/Chest: No Respiratory Distress, Lungs Clear Cardiovascular: Irregularly Irregular GI/Abdominal: Soft, Non-Tender Neurological: Alert, Oriented Course - Vital Signs Last Recorded V/S: Last Vital Signs Temp 96.6 F 01/07/19 12:30 Pulse 84 01/07/19 12:30 Resp 18 01/07/19 12:30 BP 108/30 L 01/07/19 12:30 Pulse Ox 94 L 01/07/19 12:30 - Orders/Labs/Meds Labs: Laboratory Tests 01/07/19 01/07/19 Range/Units 11:21 11:21 WBC 7.7 (4.5-11.0) K/uL RBC 3.35 L (4.30-5.90) M/uL Hgb 10.0 L D (12.0-15.0) g/dL Hct 29.9 L (40.0-54.0) % MCV 89 (80-98) fL MCH 30 (27-31) pg MCHC 33 (32-36) % Plt Count 172 (150-400) K/uL Neut % (Auto) 70 H (36-66) % Lymph % (Auto) 14 L (24-44) % [place] % (Auto) 15 H (2-6) % Eos % (Auto) 1 L (2-4) % Baso % (Auto) 0 (0-1) % Sodium 128 L (140-148) mmol/L Potassium 5.0 (3.6-5.2) mmol/L Chloride 90 L (100-108) mmol/L Carbon Dioxide 25 (21-32) mmol/L Anion Gap 18.0 H (5.0-14.0) mmol/L BUN 79 H* (7-18) mg/dL Creatinine 11.3 H* (0.8-1.3) mg/dL Est Cr Clr Drug Dosing 6.35 mL/min Estimated GFR (MDRD) 5 L (>60) Glucose 182 H (74-106) mg/dL Calcium 9.1 (8.5-10.1) mg/dL Total Bilirubin 0.3 (0.2-1.0) mg/dL AST 10 L (15-37) U/L ALT 28 (12-78) U/L Alkaline Phosphatase 96 (46-116) U/L Total Protein 6.2 L (6.4-8.2) g/dL Albumin 2.8 L (3.4-5.0) g/dL Globulin 3.4 (2.3-3.5) g/dL Albumin/Globulin Ratio 0.8 L (1.2-2.2) - Re-Assessments/Exams Free Text/Narrative Re-Assessment/Exam: 01/07/19 12:06 CBC and CMP was obtained, patient was monitored for an additional hour and his blood pressure climbed only to 103/30. His atrial fibrillation persisted with a controlled rate. They would not accept him back to dialysis to continue his run , [facility] was called and transfer was arranged for dialysis, nephrology and internal medicine consultations regarding his persistent hypotension and recurring syncope. Departure - Departure Time of Disposition: 12:33 Disposition: DC/Tfer to Other 70 Clinical Impression: Syncope Qualifiers: Syncope type: unspecified Qualified Code(s): R55 - Syncope and collapse Hypotension Qualifiers: Hypotension type: hemodialysis-associated hypotension Qualified Code(s): I95.3 - Hypotension of hemodialysis - Discharge Information Referrals: PCP,None [Primary Care Provider] - Forms: ED Department Discharge Care Plan Goals: Patient will be transferred to [facility], accepted by Paul Loaiza in emergency room for admission for evaluation, dialysis and treatment by nephrology and internal medicine for persistent hypotension and recurring syncope.
[2019-01-07 12:31] VITALS: BP 108/30; PULSE 84
== END 2019-01-07 13:10 | disposition other institution (70) ==
LOC: JP.ED 10:42
DX: I95.3 Hypotension of hemodialysis (principal); R55 Syncope and collapse; N18.6 End stage renal disease; E11.22 Type 2 diabetes mellitus with diabetic chronic kidney disease; I48.91 Unspecified atrial fibrillation; I25.10 Atherosclerotic heart disease of native coronary artery without angina pectoris; E78.00 Pure hypercholesterolemia, unspecified; I25.2 Old myocardial infarction; F31.9 Bipolar disorder, unspecified; F41.9 Anxiety disorder, unspecified; Z79.4 Long term (current) use of insulin; Z99.2 Dependence on renal dialysis; Z88.8 Allergy status to other drugs, medicaments and biological substances; Z79.82 Long term (current) use of aspirin; Z79.02 Long term (current) use of antithrombotics/antiplatelets; Z79.899 Other long term (current) drug therapy
CPT/HCPCS: 36415; 80053; 85025; 99284; 99285

== ENCOUNTER 2019-01-19 15:21 | Emergency (ER) | payer MEDICAID ==
--- NOTE | 2019-01-19 15:54 | EDM.PDOC ---
ED HPI GENERAL MEDICAL PROBLEM - General Chief Complaint: General Stated Complaint: DIZZINESS Time Seen by Provider: 01/19/19 15:40 Source of Information: Reports: Patient, Old Records, RN History Limitations: Reports: No Limitations - History of Present Illness INITIAL COMMENTS - FREE TEXT/NARRATIVE: 58 yo dialysis patient has had mild dizziness for about a month. Sx's especially bad today after dialysis. No vomiting, fever, diarrhea, or chest pain. No nausea or vertigo. Dr. Francis is his primary and he asked Francis to be sent to the ER, patient did have an appt with him scheduled for tomorrow to discuss this issue. has a hx of anemia. BP running low for him. Onset: Gradual Onset Date: 12/20/18 Duration: Week(s):, Getting Worse Location: Reports: Head (feels dizziness in his head) Quality: Reports: Other (no pain) Severity: Moderate Improves with: Reports: Other (lying) Worsens with: Reports: Other (getting up. ) Context: Reports: Other (see HPI) Associated Symptoms: Reports: No Other Symptoms. Denies: Fever/Chills, Nausea/ Vomiting, Shortness of Breath Treatments SPECIAL EDUCATION AIDE: Reports: Other (see below) (none) - Related Data Allergies Allergy/AdvReac Type Severity Reaction Status Date / Time Phenothiazines AdvReac Bradycardia Verified 01/07/19 10:45 Home Meds: Home Meds Acetaminophen [Tylenol] 650 mg PO ASDIRECTED PRN 03/07/14 [History] Aspirin [Adult Low Dose Aspirin EC] 81 mg PO DAILY 03/07/14 [History] ClonazePAM [KlonoPIN] 0.5 mg PO BID 03/07/14 [History] Clopidogrel [Plavix] 75 mg PO QPM 03/07/14 [History] Insulin Aspart [Novolog Flexpen] 25 units SUBCUT ACBREAKFAST 03/07/14 [History] Nitroglycerin [Nitrostat] 0.4 mg SL ASDIRECTED 03/07/14 [History] Rosuvastatin Calcium [Crestor] 40 mg PO BEDTIME 03/07/14 [History] Sertraline HCl 150 mg PO DAILY 03/07/14 [History] amLODIPine [Norvasc] 2.5 mg PO ACBREAKFASTANDBED 03/14/14 [History] Gabapentin 100 mg PO BID 08/21/15 [History] QUEtiapine Fumarate [Seroquel Xr] 200 mg PO BEDTIME 02/09/15 [History] Calcium Acetate [PhosLo] 2 tab PO DAILY 04/20/17 [History] Insulin Glarg,Human.Rec.Analog [Lantus Solostar] 80 units SUBCUT BEDTIME [History] Nefazodone [Serzone] 150 tab PO DAILY 04/20/17 [History] Pantoprazole Sodium 40 mg PO DAILY 04/20/17 [History] Ezetimibe 10 mg PO DAILY 08/17/18 [History] NIFEdipine [Adalat cc] 30 mg PO DAILY 08/17/18 [History] Insulin Aspart [NovoLOG] 30 unit SUBCUT ACDINNER 01/19/19 [History] Past Medical History HEENT History: Reports: Impaired Vision Cardiovascular History: Reports: Afib, CAD, High Cholesterol, RI, SOB on Exertion, Other (See Below) Other Cardiovascular History: pulmonary edema Respiratory History: Reports: Bronchitis, Recurrent, Pneumonia, Recurrent, Sleep Apnea, SOB, Other (See Below) Other Respiratory History: pulmonary edema Genitourinary History: Reports: Chronic Renal Insuffiency, Dialysis Musculoskeletal History: Reports: Gout Neurological History: Reports: Migraines, Neuropathy, Peripheral Psychiatric History: Reports: Anxiety, Bipolar, Depression, Mood Swings, OCD, Panic Attack Endocrine/Metabolic History: Reports: Diabetes, Type II, IDDM, Other (See Below) Other Endocrine/Metabolic History: thyroid disease Hematologic History: Reports: Anemia, Blood Transfusion(s) Immunologic History: Reports: Immunosuppression, Other (See Below) Other Immunologic History: dialysis patient Oncologic (Cancer) History: Reports: None Dermatologic History: Reports: Cellulitis - Infectious Disease History Infectious Disease History: Reports: Chicken Pox Other Infectious Disease History: unknown - Past Surgical History Cardiovascular Surgical History: Reports: Coronary Artery Bypass, Coronary Artery Stent, Percutaneous Transluminal Angioplasty Other Cardiovascular Surgeries/Procedures: CABG x3 2014 GI Surgical History: Reports: Colonoscopy Male Surgical History: Reports: Lithotripsy (ESWL) Social & Family History - Tobacco Use Smoking Status *Q: Never Smoker - Caffeine Use Caffeine Use: Reports: Coffee, Soda, Tea ED ROS GENERAL - Review of Systems Review Of Systems: See Below Constitutional: Reports: No Symptoms HEENT: Reports: No Symptoms Respiratory: Reports: No Symptoms Cardiovascular: Reports: Lightheadedness (noemy when up) GI/Abdominal: Reports: No Symptoms : Reports: Other (renal failure on dialysis) Musculoskeletal: Reports: No Symptoms Skin: Reports: No Symptoms ED EXAM, GENERAL - Physical Exam Exam: See Below Exam Limited By: No Limitations General Appearance: Alert, WD/WN, No Apparent Distress Eye Exam: Bilateral Eye: Normal Inspection, Other (no nystagmus) Ears: Normal External Exam, Normal Canal, Hearing Grossly Normal Ear Exam: Bilateral Ear: Auricle Normal, Canal Normal Nose: Normal Inspection, No Blood Throat/Mouth: Normal Inspection, Normal Lips, Normal Oropharynx, Normal Voice, No Airway Compromise Head: Atraumatic, Normocephalic Neck: Normal Inspection Respiratory/Chest: No Respiratory Distress, Lungs Clear, Normal Breath Sounds, No Accessory Muscle Use Cardiovascular: Regular Rate, Rhythm, No Edema GI/Abdominal: Normal Bowel Sounds, Soft, Non-Tender, No Distention Extremities: Normal Inspection, Normal Range of Motion, Non-Tender, No Pedal Edema Neurological: Alert, Oriented, CN II-XII Intact, Normal Cognition, No Motor/ Sensory Deficits Psychiatric: Normal Affect, Normal Mood Skin Exam: Warm, Dry, Intact, Normal Color, No Rash Course - Vital Signs Text/Narrative:: Discussed with Dr. Francis @ [facility]. NS 500 ml IV made him feel better, 250 ml addn'l helped more. Last Recorded V/S: Last Vital Signs Temp 36.5 C 01/19/19 15:35 Pulse 46 L 01/19/19 17:06 Resp 16 01/19/19 15:35 BP 131/46 L 01/19/19 17:06 Pulse Ox 93 L 01/19/19 17:06 - Orders/Labs/Meds Labs: Laboratory Tests 01/19/19 01/19/19 01/19/19 Range/Units 15:55 15:55 15:55 WBC 7.3 (4.5-11.0) K/uL RBC 3.10 L (4.30-5.90) M/uL Hgb 9.1 L (12.0-15.0) g/dL Hct 28.7 L (40.0-54.0) % MCV 93 (80-98) fL MCH 29 (27-31) pg MCHC 32 (32-36) % Plt Count 232 (150-400) K/uL Sodium 134 L (140-148) mmol/L Potassium 3.8 (3.6-5.2) mmol/L Chloride 92 L (100-108) mmol/L Carbon Dioxide 32 (21-32) mmol/L Anion Gap 13.8 (5.0-14.0) mmol/L BUN 19 H D (7-18) mg/dL Creatinine 5.1 H* D (0.8-1.3) mg/dL Est Cr Clr Drug Dosing 14.07 mL/min Estimated GFR (MDRD) 12 L (>60) Glucose 182 H (74-106) mg/dL Calcium 9.4 (8.5-10.1) mg/dL Troponin I 0.151 H* (0.000-0.056) ng/mL Meds: Medications Discontinued Medications Generic Name Dose Route Start Last Admin Trade Name Freq PRN Reason Stop Dose Admin Sodium Chloride 500 mls @ 1,000 mls/hr 01/19/19 16:38 01/19/19 17:08 Normal Saline IV 01/19/19 17:07 1,000 mls/hr .BOLUS ONE Administration Departure - Departure Time of Disposition: 18:00 Disposition: Home, Self-Care 01 Condition: Fair Clinical Impression: Hypovolemia Anemia Qualifiers: Anemia type: due to chronic kidney disease Chronic kidney disease stage: on chronic dialysis Qualified Code(s): N18.6 - End stage renal disease; D63.1 - Anemia in chronic kidney disease; Z99.2 - Dependence on renal dialysis - Discharge Information *PRESCRIPTION DRUG MONITORING PROGRAM REVIEWED*: No *COPY OF PRESCRIPTION DRUG MONITORING REPORT IN PATIENT LORETO: No Referrals: Raz Francis MD [Primary Care Provider] - Forms: ED Department Discharge Additional Instructions: See Dr. Francis tomorrow. No medication changes at this time.
[2019-01-19] MEDS ORDERED: Sodium Chloride 0.9% 500 ML IV ONE (16:38)
[2019-01-19 17:06] VITALS: BP 131/46; PULSE 46
== END 2019-01-19 18:15 | disposition home or self-care (01) ==
LOC: JP.ED 15:21
DX: E86.1 Hypovolemia (principal); N18.6 End stage renal disease; D63.1 Anemia in chronic kidney disease; E11.22 Type 2 diabetes mellitus with diabetic chronic kidney disease; Z99.2 Dependence on renal dialysis; Z95.1 Presence of aortocoronary bypass graft; Z95.5 Presence of coronary angioplasty implant and graft; Z79.4 Long term (current) use of insulin; Z79.82 Long term (current) use of aspirin; Z79.899 Other long term (current) drug therapy; Z88.8 Allergy status to other drugs, medicaments and biological substances; F03.90 Unspecified dementia, unspecified severity, without behavioral disturbance, psychotic disturbance, mood disturbance, and anxiety; I25.10 Atherosclerotic heart disease of native coronary artery without angina pectoris
CPT/HCPCS: 36415; 80048; 84484; 85027; 99283; J7040; 99285

== ENCOUNTER 2019-01-19 20:43 | Emergency (ER) | payer MEDICAID ==
--- NOTE | 2019-01-19 21:51 | EDM.PDOC ---
ED HPI GENERAL MEDICAL PROBLEM - General Chief Complaint: General Stated Complaint: MED[facility] Time Seen by Provider: 01/19/19 21:31 Source of Information: Reports: Patient, Family, RN Notes Reviewed History Limitations: Reports: No Limitations - History of Present Illness INITIAL COMMENTS - FREE TEXT/NARRATIVE: 58-year-old gentleman presents emergency department today complaint of sudden onset of dizziness difficulty walking. He is known history of end-stage renal disease on dialysis is actually in the emergency department 4 hours prior for same complaints evaluation at that time which included fluids and blood work was unremarkable felt significantly better after 500 mL fluid he states that he was feeling fine after he left the emergency department then sudden onset of dizziness again no other symptoms at this time.. 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: fluids - Related Data Allergies Allergy/AdvReac Type Severity Reaction Status Date / Time Phenothiazines AdvReac Bradycardia Verified 01/07/19 10:45 Home Meds: Home Meds Acetaminophen [Tylenol] 650 mg PO ASDIRECTED PRN 03/07/14 [History] Aspirin [Adult Low Dose Aspirin EC] 81 mg PO DAILY 03/07/14 [History] ClonazePAM [KlonoPIN] 0.5 mg PO BID 03/07/14 [History] Clopidogrel [Plavix] 75 mg PO QPM 03/07/14 [History] Insulin Aspart [Novolog Flexpen] 25 units SUBCUT ACBREAKFAST 03/07/14 [History] Nitroglycerin [Nitrostat] 0.4 mg SL ASDIRECTED 03/07/14 [History] Rosuvastatin Calcium [Crestor] 40 mg PO BEDTIME 03/07/14 [History] Sertraline HCl 150 mg PO DAILY 03/07/14 [History] amLODIPine [Norvasc] 2.5 mg PO ACBREAKFASTANDBED 03/14/14 [History] Gabapentin 100 mg PO BID 02/09/15 [History] QUEtiapine Fumarate [Seroquel Xr] 200 mg PO BEDTIME 02/09/15 [History] Calcium Acetate [PhosLo] 2 tab PO DAILY 04/20/17 [History] Insulin Glarg,Human.Rec.Analog [Lantus Solostar] 80 units SUBCUT BEDTIME [History] Nefazodone [Serzone] 150 tab PO DAILY 04/20/17 [History] Pantoprazole Sodium 40 mg PO DAILY 04/20/17 [History] Ezetimibe 10 mg PO DAILY 08/17/18 [History] NIFEdipine [Adalat cc] 30 mg PO DAILY 08/17/18 [History] Insulin Aspart [NovoLOG] 30 unit SUBCUT ACDINNER 01/19/19 [History] Past Medical History HEENT History: Reports: Impaired Vision Cardiovascular History: Reports: Afib, CAD, High Cholesterol, AR, SOB on Exertion, Other (See Below) Other Cardiovascular History: pulmonary edema Respiratory History: Reports: Bronchitis, Recurrent, Pneumonia, Recurrent, Sleep Apnea, SOB, Other (See Below) Other Respiratory History: pulmonary edema Genitourinary History: Reports: Chronic Renal Insuffiency, Dialysis Musculoskeletal History: Reports: Gout Neurological History: Reports: Migraines, Neuropathy, Peripheral Psychiatric History: Reports: Anxiety, Bipolar, Depression, Mood Swings, OCD, Panic Attack Endocrine/Metabolic History: Reports: Diabetes, Type II, IDDM, Other (See Below) Other Endocrine/Metabolic History: thyroid disease Hematologic History: Reports: Anemia, Blood Transfusion(s) Immunologic History: Reports: Immunosuppression, Other (See Below) Other Immunologic History: dialysis patient Oncologic (Cancer) History: Reports: None Dermatologic History: Reports: Cellulitis - Infectious Disease History Infectious Disease History: Reports: Chicken Pox Other Infectious Disease History: unknown - Past Surgical History Cardiovascular Surgical History: Reports: Coronary Artery Bypass, Coronary Artery Stent, Percutaneous Transluminal Angioplasty Other Cardiovascular Surgeries/Procedures: CABG x3 2014 GI Surgical History: Reports: Colonoscopy Male Surgical History: Reports: Lithotripsy (ESWL) Social & Family History - Caffeine Use Caffeine Use: Reports: Coffee, Soda, Tea ED ROS GENERAL - Review of Systems Review Of Systems: See Below Constitutional: Reports: No Symptoms HEENT: Reports: No Symptoms Respiratory: Reports: No Symptoms Cardiovascular: Reports: No Symptoms GI/Abdominal: Reports: No Symptoms : Reports: No Symptoms Musculoskeletal: Reports: No Symptoms Neurological: Reports: Dizziness ED EXAM, GENERAL - Physical Exam Exam: See Below Free Text/Narrative:: Head impulse test: Negative loss of fixation with corrective saccades when head turned to the bilateral Nystagmus: unidirectional, horizontal 0-beating nystagmus Skew deviation: grossly absent Exam Limited By: No Limitations General Appearance: Alert, WD/WN, No Apparent Distress Respiratory/Chest: No Respiratory Distress, Lungs Clear, Normal Breath Sounds, No Accessory Muscle Use, Chest Non-Tender Cardiovascular: Regular Rate, Rhythm, No Murmur GI/Abdominal: Soft, Non-Tender Course - Vital Signs Last Recorded V/S: Last Vital Signs Temp 99.4 F 01/19/19 20:50 Pulse 82 01/19/19 22:11 Resp 14 01/19/19 22:11 BP 156/53 H 01/19/19 22:11 Pulse Ox 96 01/19/19 22:11 - Orders/Labs/Meds Orders: Active Orders 24 hr Category Date Time Status Cardiac Monitoring [RC] .As Directed Care 01/20/19 00:15 Active EKG Documentation Completion [RC] ASDIRECTED Care 01/20/19 01:38 Ordered Iopamidol [Isovue-370 (76%)] Med 01/19/19 22:30 Active 100 ml IV . DIRECTED Sodium Chloride 0.9% [Normal Saline] 1,000 ml Med 01/20/19 00:15 Active IV ASDIRECTED Sodium Chloride 0.9% [Normal Saline] 100 ml Med 01/19/19 22:30 Active IV ASDIRECTED EKG 12 Lead [EK] Stat Ther 01/20/19 01:38 Ordered Medication Orders Sodium Chloride (Normal Saline) 100 mls @ 3 mls/sec IV ASDIRECTED [facility] Last Admin: 01/19/19 22:42 Dose: 3 mls/sec Sodium Chloride (Normal Saline) 1,000 mls @ 500 mls/hr IV ASDIRECTED [facility] Last Admin: 01/20/19 00:35 Dose: 500 mls/hr Iopamidol (Isovue-370 (76%)) 100 ml IV . DIRECTED [facility] Last Admin: 01/19/19 22:42 Dose: 100 ml Labs: Laboratory Tests 01/20/19 01/20/19 Range/Units 00:20 00:20 WBC 8.3 (4.5-11.0) K/uL RBC 2.71 L (4.30-5.90) M/uL Hgb 8.0 L (12.0-15.0) g/dL Hct 25.2 L (40.0-54.0) % MCV 93 (80-98) fL MCH 30 (27-31) pg MCHC 32 (32-36) % Plt Count 225 (150-400) K/uL Neut % (Auto) 81 H (36-66) % Lymph % (Auto) 9 L (24-44) % [place] % (Auto) 9 H (2-6) % Eos % (Auto) 1 L (2-4) % Baso % (Auto) 0 (0-1) % Sodium 130 L (140-148) mmol/L Potassium 4.8 (3.6-5.2) mmol/L Chloride 91 L (100-108) mmol/L Carbon Dioxide 30 (21-32) mmol/L Anion Gap 13.8 (5.0-14.0) mmol/L BUN 25 H (7-18) mg/dL Creatinine 6.5 H* (0.8-1.3) mg/dL Est Cr Clr Drug Dosing 11.04 mL/min Estimated GFR (MDRD) 9 L (>60) Glucose 225 H (74-106) mg/dL Calcium 8.6 (8.5-10.1) mg/dL Total Bilirubin 0.4 (0.2-1.0) mg/dL AST 23 D (15-37) U/L ALT 42 (12-78) U/L Alkaline Phosphatase 90 (46-116) U/L Total Protein 6.4 (6.4-8.2) g/dL Albumin 2.7 L (3.4-5.0) g/dL Globulin 3.7 H (2.3-3.5) g/dL Albumin/Globulin Ratio 0.7 L (1.2-2.2) Meds: Medications Generic Name Dose Route Start Last Admin Trade Name Freq PRN Reason Stop Dose Admin Sodium Chloride 100 mls @ 3 mls/sec 01/19/19 22:30 01/19/19 22:42 Normal Saline IV 3 mls/sec ASDIRECTED EDGARDO Administration Sodium Chloride 1,000 mls @ 500 mls/hr 01/20/19 00:15 01/20/19 00:35 Normal Saline IV 500 mls/hr ASDIRECTED EDGARDO Administration Iopamidol 100 ml 01/19/19 22:30 01/19/19 22:42 Isovue-370 (76%) IV 100 ml . DIRECTED EDGARDO Administration Discontinued Medications Generic Name Dose Route Start Last Admin Trade Name Freq PRN Reason Stop Dose Admin Ondansetron HCl 4 mg 01/20/19 00:16 01/20/19 00:32 Zofran IVPUSH 01/20/19 00:17 4 mg ONETIME ONE Administration Departure - Departure Time of Disposition: 01:44 Disposition: DC/Tfer to Acute Hospital 02 Condition: Poor Clinical Impression: Dizziness - Discharge Information Referrals: Raz Francis MD [Primary Care Provider] - Forms: ED Department Discharge - My Orders Last 24 Hours: My Active Orders 01/19/19 22:30 Iopamidol [Isovue-370 (76%)] 100 ml IV . DIRECTED Sodium Chloride 0.9% [Normal Saline] 100 ml IV ASDIRECTED 01/20/19 00:15 Cardiac Monitoring [RC] .As Directed Sodium Chloride 0.9% [Normal Saline] 1,000 ml IV ASDIRECTED 01/20/19 01:38 EKG Documentation Completion [RC] ASDIRECTED EKG 12 Lead [EK] Stat - Assessment/Plan Last 24 Hours: My Active Orders 01/19/19 22:30 Iopamidol [Isovue-370 (76%)] 100 ml IV . DIRECTED Sodium Chloride 0.9% [Normal Saline] 100 ml IV ASDIRECTED 01/20/19 00:15 Cardiac Monitoring [RC] .As Directed Sodium Chloride 0.9% [Normal Saline] 1,000 ml IV ASDIRECTED 01/20/19 01:38 EKG Documentation Completion [RC] ASDIRECTED EKG 12 Lead [EK] Stat Plan: Assessment Acuity = acute Site and laterality = dizziness complicated with a gentleman known history of end-stage renal disease on dialysis Etiology = unknown etiology Manifestations = nausea and vomiting Location of injury = Home Lab values = hemoglobin low at 8.0 consistent normochromic anemia creatinine initially 5.1 this afternoon now 4 hours later 6.5 consistent with end-stage renal G5D, JOYNER had reveals no acute process 50% stenosis in the carotids Plan Called discussed case Dr. Loaiza at [facility] [place] [address] kindly accepted the patient in transport request EKG prior to transport will be transported via EMS ground This note was dictated using [employer] voice recognition software please call with any questions on syntax or grammar.
[2019-01-19] MEDS ORDERED: Sodium Chloride 0.9% 100 ML IV SCH (22:30)
[2019-01-19] MEDS ORDERED: Iopamidol 755 Mg/ML 100 ML Bottle IV SCH (22:30)
--- NOTE | 2019-01-19 23:02 | CRLCT ---
INDICATION: Dizziness, difficulty walking. TECHNIQUE: High resolution axial CT images acquired through the head following rapid intravenous administration of iodinated contrast. Multiplanar MIPS of cranial vasculature performed. FINDINGS: Calcified plaque is present around both carotid siphons without significant stenosis. There is no large vessel occlusion. No aneurysm or vascular malformation is identified. The underlying brain parenchyma demonstrates age-appropriate volume loss and minor nonspecific white matter hypoattenuation commonly seen with chronic small vessel disease. The garcia-white matter differentiation is maintained. The ventricles and basal cisterns are clear. IMPRESSION: No acute intracranial abnormality at CTA. Bc Osborn MD Neurointerventional [employer] [facility] Please note that all CT scans at this facility use dose modulation, iterative reconstruction, and/or weight-based dosing when appropriate to reduce radiation dose to as low as reasonably achievable. Dictated by Bc Osborn MD @ Jan 21 2019 9:24AM Signed by Dr. Bc Osborn @ Jan 21 2019 10:41AM
[2019-01-20] MEDS ORDERED: Sodium Chloride 0.9% 1,000 ML IV SCH (00:15)
[2019-01-20] MEDS ORDERED: Ondansetron 4 MG/2 ML SDV IVPUSH ONE (00:16)
[2019-01-20 04:17] VITALS: BP 151/60; PULSE 94
== END 2019-01-20 04:22 ==
LOC: JP.ED 20:43
DX: R42 Dizziness and giddiness (principal); N18.6 End stage renal disease; I48.91 Unspecified atrial fibrillation; I25.10 Atherosclerotic heart disease of native coronary artery without angina pectoris; E78.00 Pure hypercholesterolemia, unspecified; I25.2 Old myocardial infarction; F31.9 Bipolar disorder, unspecified; F41.9 Anxiety disorder, unspecified; E11.9 Type 2 diabetes mellitus without complications; Z79.82 Long term (current) use of aspirin; Z99.2 Dependence on renal dialysis; Z79.02 Long term (current) use of antithrombotics/antiplatelets; Z79.899 Other long term (current) drug therapy; Z88.8 Allergy status to other drugs, medicaments and biological substances; Z79.4 Long term (current) use of insulin
CPT/HCPCS: 36415; 70496; 80053; 84484; 85025; 93005; 96361; 96374; 99285; J2405; J7030; Q9967; 93010